=== PATIENT | female | born 1955 | race African-American/Black ===

== ENCOUNTER 2018-11-25 13:58 | Inpatient (IN) | payer MEDICARE, MEDICAID ==
[~2018-11-25] VITALS: Ht 162.6 cm; Wt 90.7 kg
[~2018-11-25 13:58] MED LIST: ACETAMINOPHEN-1 EAC1 ORAL; ALBUTEROL SULF8.5 GM INH; ALLOPURINOL100 M1 ORAL; ATORVASTATIN CA20 MG ORAL; BUMETANIDE1 MG ORAL; CLOPIDOGREL75 MG ORAL; DYAZIDE1 CAP ORAL; FERROUS SULFAT325 MG ORAL; GLIMEPIRIDE4 MG ORAL; HYDROCHLOROTHIA25 MG ORAL; JANUVIA100 MG ORAL; LAC HYDRIN EXT; LEVAQUIN500 MG ORAL; LISINOPRIL20 MG ORAL; METFORMIN HCL1000 M1 ORAL; METOPROLOL TART50 MG ORAL; NORCO 5-325 TA1 EACH ORAL; RANITIDINE HCL150 MG ORAL; TENORMIN25 MG ORAL
--- NOTE | 2018-11-25 14:07 | Emergency Room Report ---
History of Present Illness General Chief Complaint: Dizziness Source: Patient, EMS Present Illness HPI Patient is a 63-year-old female brought in by EMS after increased generalized weakness and lightheadedness. Patient was noted to have high blood sugar by EMS. She was started on IV fluids. Patient reports having increased generalized weakness over the past few days. She denies any focal weakness. She states that she had been more sleepy lately but had not been vomiting or having any diarrhea. She reports being compliant with her medications but does not recall which medication she currently takes. Patient states her primary care physician is Dr. Del VallePatient denies any fever or chills. She reports having some recent epigastric pain. She states she has had a recent ultrasound which showed fatty liver. Allergies: Coded Allergies: No Known Allergies (Unverified , 03/04/14) Patient History Past Medical History: see triage record Now: No Reviewed Nursing Documentation: PMH: Agreed; PSxH: Agreed Nursing Documentation-PMH Past Medical History: No History, Except For Hx Cardiac Problems: Yes - Triple Bypass surgery in 2002 Hx Hypertension: Yes Hx Pacemaker: No Hx Asthma: No Hx Diabetes: Yes - CKD Hx Cancer: Yes - LEUKEMIA Hx Gastrointestinal Problems: No Hx Dialysis: No - Lt Nephrectomy in 03/2015 Hx Neurological Problems: No Hx Cerebrovascular Accident: No Review of Systems All Other Systems: negative except mentioned in HPI Physical Exam Vital Signs Date Time Temp Pulse Resp B/P (MAP) Pulse Ox O2 Delivery O2 Flow Rate FiO2 11/25/18 13:49 98.2 90 18 168/82 98 Room Air Sp02 EP Interpretation: reviewed, normal General Appearance: normal inspection, well appearing, no apparent distress, alert, GCS 15, obese Head: atraumatic ENT: normal ENT inspection, hearing grossly normal, normal voice Neck: normal inspection, full range of motion, supple, no bony tend Respiratory: normal inspection, lungs clear, normal breath sounds, no respiratory distress, no retraction, no wheezing Cardiovascular #1: regular rate, rhythm, no edema Gastrointestinal: normal inspection, normal bowel sounds, soft, no guarding, no hernia Genitourinary: no CVA tenderness Musculoskeletal: normal inspection, back normal, normal range of motion Neurologic: normal inspection, alert, oriented x3, responsive, order entry clerk III-XII nml as tested, speech normal Psychiatric: normal inspection, judgement/insight normal, mood/affect normal Skin: normal inspection, normal color, no rash Medical Decision Making Diagnostic Impression: Primary Impression: Hyperglycemia Additional Impression: Dehydration ER Course Patient 63-year-old female presented after increased generalized weakness. Differential diagnosis included was not limited to anemia, urinary tract infection, electrolyte abnormality, hypothyroidism, myocardial infarction, myasthenia gravis, dehydration, among others. Because of complexity of patient' s case laboratory testing and imaging studies were ordered. She was noted to have EKG interpreted by me with normal sinus rhythm with a rate of [address] or T wave changes.Patient started on IV fluids. Dr. Irby was contacted for inpatient management due to prior admission Labs Test 11/25/18 14:05 White Blood Count 6.0 K/UL (4.8-10.8) Red Blood Count 3.16 M/UL (4.20-5.40) Hemoglobin 11.3 G/DL (12.0-16.0) Hematocrit 35.1 % (37.0-47.0) Mean Corpuscular Volume 111 FL (80-99) Mean Corpuscular Hemoglobin 35.9 PG (27.0-31.0) Mean Corpuscular Hemoglobin Concent 32.3 G/DL (32.0-36.0) Red Cell Distribution Width 13.4 % (11.6-14.8) Platelet Count 409 K/UL (150-450) Mean Platelet Volume 6.6 FL (6.5-10.1) Neutrophils (%) (Auto) % (45.0-75.0) Lymphocytes (%) (Auto) % (20.0-45.0) Monocytes (%) (Auto) % (1.0-10.0) Eosinophils (%) (Auto) % (0.0-3.0) Basophils (%) (Auto) % (0.0-2.0) Sodium Level 135 MMOL/L (136-145) Potassium Level 4.2 MMOL/L (3.5-5.1) Chloride Level 99 MMOL/L (98-107) Carbon Dioxide Level 25 MMOL/L (21-32) Anion Gap 11 mmol/L (5-15) Blood Urea Nitrogen 37 mg/dL (7-18) Creatinine 1.7 MG/DL (0.55-1.30) Estimat Glomerular Filtration Rate 36.7 mL/min (>60) Glucose Level 459 MG/DL (74-106) Calcium Level 9.0 MG/DL (8.5-10.1) Total Bilirubin 0.4 MG/DL (0.2-1.0) Aspartate Amino Transf (AST/SGOT) 16 U/L (15-37) Alanine Aminotransferase (ALT/SGPT) 34 U/L (12-78) Alkaline Phosphatase 188 U/L (46-116) Troponin I 0.000 ng/mL (0.000-0.056) Pro-B-Type Natriuretic Peptide 27 pg/mL (0-125) Total Protein 7.1 G/DL (6.4-8.2) Albumin 3.4 G/DL (3.4-5.0) Globulin 3.7 g/dL Albumin/Globulin Ratio 0.9 (1.0-2.7) Lipase 410 U/L (73-393) Thyroid Stimulating Hormone (TSH) 0.839 uiU/mL (0.358-3.740) EKG Diagnostic Results Rate: normal - 85 Rhythm: NSR ST Segments: no acute changes Last Vital Signs Date Time Temp Pulse Resp B/P (MAP) Pulse Ox O2 Delivery O2 Flow Rate FiO2 11/25/18 13:49 98.2 90 18 168/82 98 Room Air Status: unchanged Disposition: ADMITTED INPATIENT Condition: Serious Don Walter MD Nov 25, 2018 14:07
[2018-11-25 14:29] LABS: HEMATOCRIT 35.1 % (37.0-47.0); HEMOGLOBIN 11.3 G/DL (12.0-16.0); MEAN CORPUSCULAR VOLUME 111 FL (80-99); PLATELET COUNT 409 K/UL (150-450); RED BLOOD COUNT 3.16 M/UL (4.20-5.40); RED CELL DISTRIBUTION WIDTH 13.4 % (11.6-14.8)
[2018-11-25 14:43] LABS: ANION GAP 11 mmol/L (5-15); BLOOD UREA NITROGEN 37 mg/dL (7-18); CARBON DIOXIDE 25 MMOL/L (21-32); CHLORIDE 99 MMOL/L (98-107); CREATININE 1.7 MG/DL (0.55-1.30); POTASSIUM 4.2 MMOL/L (3.5-5.1); SODIUM 135 MMOL/L (136-145)
[2018-11-25 14:44] VITALS: BP 150/68
--- NOTE | 2018-11-25 14:44 | NUR ---
Note jose roberto in EDM - 11/25/18 at 1620 by [email or web address] ED Nurse Note: Pt brought in by [facility] from home c/o weakness. Pt AA&
--- NOTE | 2018-11-25 14:44 | NUR ---
ED Nurse Note: Pt brought in by [facility] from home c/o weakness. Pt BS on field was critically high and pt states she hasn't been taking her meds because she ran out. pt aA&ox4, gcs=15, skin warm and dry, resp even and unlabored on RA, +n -v/d, ambulates w/ weak but steady gait. Pt NSR on bank guard, VSS, BE=852 at the bedside. ERMD at the bedside and aware. will cont monitor. pt advised to notify staff if needed assist.
[2018-11-25 14:57] LABS: ALANINE AMINOTRANSFERASE 34 U/L (12-78); ALBUMIN 3.4 G/DL (3.4-5.0); ALBUMIN/GLOBULIN RATIO 0.9 (1.0-2.7); ALKALINE PHOSPHATASE 188 U/L (46-116); ASPARTATE AMINO TRANSFERASE 16 U/L (15-37); BILIRUBIN,TOTAL 0.4 MG/DL (0.2-1.0)
--- NOTE | 2018-11-25 15:25 | NUR ---
ED Nurse Note: accucheck 389 recheck, JENNIFERD notified.
--- NOTE | 2018-11-25 15:29 | NUR ---
ED Nurse Note: pt advised to increase fluid intake, verified w/ ERMD.
[2018-11-25 15:44] VITALS: BP 153/75
[2018-11-25 16:00] LABS: APPEARANCE,URINE CLEAR; BILIRUBIN, URINE NEGATIVE (NEGATIVE); COLOR,URINE PALE YELLOW; GLUCOSE, URINE (UA) 4+ (NEGATIVE); KETONES,URINE NEGATIVE (NEGATIVE); LEUKOCYTE ESTERASE ,URINE NEGATIVE (NEGATIVE); NITRITE,URINE NEGATIVE (NEGATIVE); PH,URINE 6.5 (4.5-8.0); PROTEIN,URINE NEGATIVE (NEGATIVE); UROBILINOGEN,URINE NORMAL MG/DL (0.0-1.0)
[2018-11-25 16:44] VITALS: BP 149/79
--- NOTE | 2018-11-25 16:50 | Diagnostic Imaging Report ---
Indication: Abdominal pain Technique: Spiral acquisitions obtained through the abdomen and pelvis. No oral contrast utilized, per emergency room physician request No IV contrast utilized, per referring physician request.. Multiplanar reconstructions were generated. Total dose length product 983.82 mGycm. CTDIvol(s) 19.28 mGy. Dose reduction achieved using automated exposure control Comparison: 11/21/2015 Findings: Lack of enteric contrast limits assessment of the GI tract. One or more distal sigmoid diverticula are noted. The appendix is normal. No evidence of diverticulitis. The distal esophagus, stomach, duodenum are unremarkable. No small bowel distention. No free or loculated intraperitoneal gas or fluid. Lack of IV contrast limits assessment of the solid organs. The liver, gallbladder, bile ducts are all unremarkable. The pancreas again demonstrates a calcification within the head. The spleen is unremarkable. The left adrenal demonstrates a stable 12 mm mass which demonstrates attenuation of 10 Hounsfield units. The right adrenal demonstrates at least 2 subcentimeter nodules which are stable. The right kidney is normal. No gross mass, calculi, hydronephrosis, or hydroureter demonstrated. The left kidney is not visualized. No mass is seen in the left renal fossa. No pelvic mass or adenopathy. Uterus and ovaries are not visualized. Again demonstrated is an aortobifemoral bypass graft, patency of which is indeterminate in the absence of IV contrast. Again noted is a stent within the distal right iliac limb. Previously demonstrated Lewis catheter is been removed. The included lung bases are clear. The bones demonstrate degenerative spondylosis changes. Impression: Limited assessment of the GI tract, due to lack of enteric contrast demonstration No acute abnormality Stable small bilateral adrenal nodules, presumably benign adenomata Colonic diverticulosis. No evidence of diverticulitis. Post surgical changes, as described, including evidence of prior left nephrectomy, hysterectomy, aortobifemoral bypass graft, and stenting of the distal right iliac limb of the bypass graft The CT scanner at [facility] is accredited by the [employer] and the scans are performed using protocols designed to limit radiation exposure to as low as reasonably achievable to attain images of sufficient resolution adequate for diagnostic evaluation.
[2018-11-25] MEDS ORDERED: Morphine Sulfate 2mg/ml Inj(IV/IM USE ONLY) IVP PRN (17:15)
[2018-11-25] MEDS ORDERED: Miralax 17gm pkt ORAL PRN (17:15)
[2018-11-25] MEDS ORDERED: Albuterol/Ipratropium 3ml neb HHN PRN (17:15)
[2018-11-25] MEDS ORDERED: Nitroglycerin Subl 0.4mg tab SL PRN (17:15)
[2018-11-25] MEDS ORDERED: Ketorolac 30mg Inj IV PRN (17:15)
[2018-11-25] MEDS ORDERED: Mylanta II UD 30ml ORAL PRN (17:15)
[2018-11-25] MEDS ORDERED: BENADRYL25 MG ORAL (18:19)
[2018-11-25] MEDS ORDERED: VICTOZA 3-0.6 MG/0.1 SQ (18:19)
[2018-11-25] MEDS ORDERED: HUMALOG KW200 UNIT/1 SQ (18:19)
[2018-11-25] MEDS ORDERED: TRESIBA FL200 UNIT/1 SQ (18:31)
[2018-11-25] MEDS ORDERED: BUPROPION XL300 M1 PO (18:32)
[2018-11-25] MEDS ORDERED: BUPROPION XL150 MG ORAL (18:32)
[2018-11-25] MEDS ORDERED: BUMETANIDE2 MG ORAL (18:36)
[2018-11-25] MEDS ORDERED: CILOSTAZOL100 MG PO (18:36)
[2018-11-25] MEDS ORDERED: LACRI-LUBE1 APPLIC BOTH EYES (18:36)
[2018-11-25] MEDS ORDERED: GAS RELIEF125 M1 PO (18:36)
[2018-11-25] MEDS ORDERED: ATORVASTATIN CA80 MG ORAL (18:36)
[2018-11-25] MEDS ORDERED: ASPIR 8181 MG ORAL (18:37)
[2018-11-25] MEDS ORDERED: METOPROLOL SUCC50 MG ORAL (19:08)
--- NOTE | 2018-11-25 19:26 | NUR ---
ED Nurse Note: Received report from Rebecca VIGIL. Pt in bed awake. Pt to be admitted to tele for weakness and uncontrolled diabetes. Pt stable with no distress noted. Will contiue to monitor until nurse available to receive pt on unit.
--- NOTE | 2018-11-25 19:31 | NUR ---
ED Nurse Note: attempted giving report, Rashad zaldivar unavailable to take report at this time.
--- NOTE | 2018-11-25 19:32 | NUR ---
ED Nurse Note: ERMD notified regarding BS, no new orders received.
--- NOTE | 2018-11-25 19:40 | NUR ---
ED Nurse Note: Report given to RN Marilee and endorsed care, pt vss, nsr on cafeteria monitor, all belongings sent with pt.
[2018-11-25 20:00] VITALS: BP 152/69
--- NOTE | 2018-11-25 20:15 | NUR ---
NURSE NOTES: Received patient from ED, report received from YARITZA Gannon. Patient awake, alert and verbally responsive. No SOB, no acute distress. Denies any pain nor any discomfort at this time. Placed medical scientist, vital signs taken. Verified belongings with ED nurse. No skin breakdown noted. IV site on R FA #20, patent and intact, on NS at 100 ml/hr. Bed at lowest position, call light within reach. Will continue plan of care.
[2018-11-25] MEDS: NovoLOG Insulin Flexpen SUBQ SCH (21:27)
[2018-11-25] MEDS: Heparin 5000 units/ml inj SUBQ SCH (21:27)
[2018-11-26] VITALS: BP 128/71
--- NOTE | 2018-11-26 03:20 | NUR ---
NURSE NOTES: Patient asleep, breathing even and unlabored, no s/sx of pain nor any discomfort at this time. bed at lowest position, call light within reach. Will continue to monitor.
[2018-11-26 04:00] VITALS: BP 150/74
[2018-11-26] MEDS: NovoLOG Insulin Flexpen SUBQ SCH ×7 (06:05→21:07)
--- NOTE | 2018-11-26 07:23 | NUR ---
HAND-OFF: Report given to YARITZA Phillips. Endorsed plan of care.
--- NOTE | 2018-11-26 07:29 | NUR ---
NURSE NOTES: Received patient from [facility] in bed eating breakfast. Patient is alert and oriented x4, able to make needs known. IV is intact and patent, NS running at 100cc/hr. Skin is intact and warm to touch. Bed is in lowest position with bedside rails up x2, brakes engaged for safety. Call light is within reach. Will continue with the plan of care.
[2018-11-26 08:00] VITALS: BP 131/70
--- NOTE | 2018-11-26 08:16 | NUR ---
CASE MANAGEMENT:REVIEW 63 YR OLD FEMALE BIBA FROM HOME CC; DIZZINESS SI: UNCONTROLLED DM. DEHYDRATION 98.2 90 18 168/82 98% ON RA BUN+37 CR+1.7 GLUCOSE+459 LIPASE+410 IS: 1L NS BOLUS SS INSULIN : TO TELEMETRY UNIT INTERQUAL CRITERIA MET
[2018-11-26] MEDS: sitaGLIPtin 50mg tab ORAL SCH (08:34)
[2018-11-26] MEDS: Heparin 5000 units/ml inj SUBQ SCH ×2 (08:35→21:08)
--- NOTE | 2018-11-26 08:45 | Consultation ---
DATE OF CONSULTATION: 11/26/2018 CONSULTING PHYSICIAN: Pilo Chapman M.D. REFERRING PHYSICIAN: Ari Irby M.D. REASON FOR CONSULTATION: Diabetes management. HISTORY OF PRESENT ILLNESS: The patient is a 63-year-old female with history of diabetes, as an outpatient treated with a combination of Victoza, Tresiba and Humalog, presented to the hospital with generalized weakness. Lipase is elevated. Glucose is out of control. Endocrinology was consulted in order to assist in the management of diabetes. PAST MEDICAL HISTORY: 1. Diabetes. 2. Hyperlipidemia. 3. Fatty liver. MEDICATIONS: As an outpatient reviewed and reconciled. FAMILY HISTORY: Noncontributory. SOCIAL HISTORY: No smoking, alcohol, or drug use. REVIEW OF SYSTEMS: As per HPI. LABORATORY VALUES: Sodium 135, potassium 4.2, chloride 99, bicarbonate 22, BUN 37, creatinine 1.7, glucose of 459, and lipase of 410. PHYSICAL EXAMINATION: VITAL SIGNS: Blood pressure 150/74, pulse 82, temperature 97.7, and respiratory rate 18. HEENT: Pupils are equal and reactive to light. Sclerae anicteric. NECK: No JVD. HEART: Regular. LUNGS: Clear. ABDOMEN: Positive bowel sounds. EXTREMITIES: No clubbing, cyanosis, or edema. DIAGNOSES: 1. Diabetes, out of control. 2. Pancreatitis. 3. Acute kidney injury. DISCUSSION: 1. Discontinue Victoza which is the probable contributor to pancreatitis. 2. Start Levemir 24 units daily. 3. Start NovoLog 8 units before each meal. 4. NovoLog sliding scale before meals and at bedtime. 5. Further adjustment according to Dr. Irby. Thank you, Dr. Irby, for the courtesy of this consultation. Pilo Chapman M.D. DR: ALEXIA JOB#: [id number] CC: JUDITH
[2018-11-26] MEDS ORDERED: Allopurinol 100mg Tab ORAL SCH (09:00)
[2018-11-26] MEDS ORDERED: Levemir Flexpen SUBQ SCH ×2 (09:00→21:30)
[2018-11-26 09:12] LABS: BASOPHILS % (AUTO) 0.8 % (0.0-2.0); EOSINOPHILS % (AUTO) 1.7 % (0.0-3.0); HEMATOCRIT 29.9 % (37.0-47.0); HEMOGLOBIN 9.9 G/DL (12.0-16.0); LYMPHOCYTES % (AUTO) 40.4 % (20.0-45.0); MEAN CORPUSCULAR VOLUME 109 FL (80-99); MONOCYTES % (AUTO) 4.8 % (1.0-10.0); NEUTROPHILS % (AUTO) 52.3 % (45.0-75.0); PLATELET COUNT 339 K/UL (150-450); RED BLOOD COUNT 2.75 M/UL (4.20-5.40); RED CELL DISTRIBUTION WIDTH 13.6 % (11.6-14.8); WHITE BLOOD COUNT 6.1 K/UL (4.8-10.8)
[2018-11-26 09:44] LABS: ALANINE AMINOTRANSFERASE 30 U/L (12-78); ALBUMIN 2.9 G/DL (3.4-5.0); ALBUMIN/GLOBULIN RATIO 0.9 (1.0-2.7); ALKALINE PHOSPHATASE 146 U/L (46-116); ANION GAP 11 mmol/L (5-15); ASPARTATE AMINO TRANSFERASE 19 U/L (15-37); BILIRUBIN,TOTAL 0.3 MG/DL (0.2-1.0); BLOOD UREA NITROGEN 26 mg/dL (7-18); CALCIUM 8.2 MG/DL (8.5-10.1); CARBON DIOXIDE 23 MMOL/L (21-32); CHLORIDE 106 MMOL/L (98-107); CHOLESTEROL 118 MG/DL (< 200); CREATININE 1.3 MG/DL (0.55-1.30); HDL CHOLESTEROL 28 MG/DL (40-60); SODIUM 140 MMOL/L (136-145); TRIGLYCERIDES 125 MG/DL (30-150)
[2018-11-26 12:00] VITALS: BP 138/65
--- NOTE | 2018-11-26 12:13 | History and Physical ---
History of Present Illness General Date patient seen: Nov 26, 2018 Reason for Hospitalization: Dizziness Present Illness HPI 63-year-old female with extensive PMHx, including DM, nephrectomy, Leukemia, brought in by EMS with CC of generalized weakness and lightheadedness high blood sugar. She was started on IV fluids. She states that she had been more sleepy lately but had not been vomiting or having any diarrhea. Patient denies any fever or chills. She is admitted for uncontrolled hyperglycemia. Allergies: Coded Allergies: No Known Allergies (Unverified , 03/04/14) Medication History Scheduled Aspirin* (Aspir 81*), 81 MG ORAL DAILY, (Reported) Atorvastatin Calcium* (Lipitor*), 80 MG ORAL BEDTIME, (Reported) Bumetanide* (Bumetanide*), 2 MG ORAL DAILY, (Reported) Bupropion HCl (Bupropion Xl), 300 MG PO DAILY, (Reported) Cilostazol* (Cilostazol*), 100 MG PO TWICE A DAY, (Reported) Insulin Degludec (Tresiba Flextouch U-200), 232 UNIT SQ DAILY, (Reported) Insulin Lispro (Humalog Kwikpen), 12 UNIT SQ DAILY, (Reported) Liraglutide (Victoza 3-Edilberto), 1.8 MG SQ DAILY, (Reported) Metoprolol Succinate* (Metoprolol Succinate*), 50 MG ORAL DAILY, (Reported) Simethicone (Gas Relief), 125 MG PO BID, (Reported) Scheduled PRN Diphenhydramine Hcl* (Benadryl*), 25 MG ORAL DAILY PRN for Itching, (Reported) Miscellaneous Medications Artificial Tears (Refresh Lacri-Lube Ointment), 1 APPLIC BOTH EYES, (Reported) Discontinued Medications Acetaminophen With Codeine (T#3) (Tylenol #3 Tab*), 1 TAB ORAL Q4H PRN for For Pain, (Reported) Discontinued Reason: Pt stopped taking med Albuterol Sulfate* (Albuterol Sulfate Mdi*), 2 PUFF INH Q3H, (Reported) Discontinued Reason: Pt stopped taking med Allopurinol* (Allopurinol*), 200 MG ORAL DAILY Discontinued Reason: Pt stopped taking med Ammonium Lactate (Lac-Hydrin Five), 4 OZ EXT, (Reported) Discontinued Reason: Pt stopped taking med Atenolol (Tenormin), 25 MG ORAL DAILY, (Reported) Discontinued Reason: Pt stopped taking med Atorvastatin Calcium* (Atorvastatin Calcium*), 20 MG ORAL BEDTIME, (Reported) Discontinued Reason: Prescription changed Bumetanide* (Bumetanide*), 1 MG ORAL DAILY, (Reported) Discontinued Reason: Pt stopped taking med Clopidogrel* (Clopidogrel*), 75 MG ORAL DAILY, (Reported) Discontinued Reason: Pt stopped taking med Ferrous Sulfate* (Ferrous Sulfate*), 325 MG ORAL DAILY Discontinued Reason: Pt stopped taking med Glimepiride* (Glimepiride*), 4 MG ORAL BID, (Reported) Discontinued Reason: Pt stopped taking med Hydrocodone Bit/Acetaminophen 5-325* (Clawson 5-325*), 1 TAB ORAL Q6H PRN for For Pain Discontinued Reason: Pt had allergic rxn Levofloxacin* (Levaquin*), 500 MG ORAL DAILY, (Reported) Discontinued Reason: Pt stopped taking med Metoprolol Tartrate* (Metoprolol Tartrate*), 50 MG ORAL EVERY 12 HOURS, ( Reported) Discontinued Reason: Prescription changed Ranitidine Hcl* (Zantac*), 150 MG ORAL TWICE A DAY, (Reported) Discontinued Reason: Pt stopped taking med Sitagliptin (Januvia), 100 MG ORAL BID, (Reported) Discontinued Reason: Pt stopped taking med Patient History Healthcare decision maker Resuscitation status Full Code Advanced Directive on File No Review of Systems All Other Systems: negative except mentioned in HPI Physical Exam General Appearance: WD/WN, no apparent distress Lines, tubes and drains: peripheral HEENT: normocephalic, atraumatic Neck: non-tender, normal alignment Respiratory/Chest: chest wall non-tender, lungs clear Breasts: no masses Cardiovascular/Chest: normal peripheral pulses Abdomen: normal bowel sounds, non tender Genitourinary/Rectal: normal genital exam Extremities: normal range of motion Last 24 Hour Vital Signs Date Time Temp Pulse Resp B/P (MAP) Pulse Ox O2 Delivery O2 Flow Rate FiO2 11/26/18 09:00 Room Air 11/26/18 08:00 97.3 80 18 131/70 (90) 100 11/26/18 08:00 80 11/26/18 04:00 82 11/26/18 04:00 97.7 75 18 150/74 (99) 100 11/26/18 00:00 97.9 83 17 128/71 (90) 99 11/26/18 00:00 86 11/25/18 22:32 Room Air 11/25/18 20:00 97.9 87 18 152/69 (96) 99 11/25/18 20:00 86 11/25/18 19:40 98.2 78 16 140/78 100 Room Air 11/25/18 16:44 98.2 78 16 149/79 100 Room Air 11/25/18 15:44 98.2 83 16 153/75 100 Room Air 11/25/18 14:44 98.2 90 18 150/68 98 Room Air 11/25/18 14:44 90 18 Room Air 11/25/18 13:49 98.2 90 18 168/82 98 Room Air Intake and Output 11/25/18 11/26/18 19:00 07:00 Intake Total 1220 ml Balance 1220 ml Intake Oral 120 ml IV Total 1100 ml # Voids 1 3 Laboratory Tests Test 11/25/18 14:05 11/25/18 15:30 11/26/18 06:40 White Blood Count 6.0 K/UL (4.8-10.8) 6.1 K/UL (4.8-10.8) Red Blood Count 3.16 M/UL (4.20-5.40) L 2.75 M/UL (4.20-5.40) L Hemoglobin 11.3 G/DL (12.0-16.0) L 9.9 G/DL (12.0-16.0) L Hematocrit 35.1 % (37.0-47.0) L 29.9 % (37.0-47.0) L Mean Corpuscular Volume 111 FL (80-99) H 109 FL (80-99) H Mean Corpuscular Hemoglobin 35.9 PG (27.0-31.0) H 36.1 PG (27.0-31.0) H Mean Corpuscular Hemoglobin Concent 32.3 G/DL (32.0-36.0) 33.3 G/DL (32.0-36.0) Red Cell Distribution Width 13.4 % (11.6-14.8) 13.6 % (11.6-14.8) Platelet Count 409 K/UL (150-450) 339 K/UL (150-450) Mean Platelet Volume 6.6 FL (6.5-10.1) 6.7 FL (6.5-10.1) Neutrophils (%) (Auto) % (45.0-75.0) 52.3 % (45.0-75.0) Lymphocytes (%) (Auto) % (20.0-45.0) 40.4 % (20.0-45.0) Monocytes (%) (Auto) % (1.0-10.0) 4.8 % (1.0-10.0) Eosinophils (%) (Auto) % (0.0-3.0) 1.7 % (0.0-3.0) Basophils (%) (Auto) % (0.0-2.0) 0.8 % (0.0-2.0) Differential Total Cells Counted 100 Neutrophils % (Manual) 65 % (45-75) Lymphocytes % (Manual) 27 % (20-45) Monocytes % (Manual) 3 % (1-10) Eosinophils % (Manual) 2 % (0-3) Basophils % (Manual) 3 % (0-2) H Band Neutrophils 0 % (0-8) Platelet Estimate Adequate Platelet Morphology Normal Anisocytosis 1+ Sodium Level 135 MMOL/L (136-145) L 140 MMOL/L (136-145) Potassium Level 4.2 MMOL/L (3.5-5.1) 4.0 MMOL/L (3.5-5.1) Chloride Level 99 MMOL/L (98-107) 106 MMOL/L (98-107) Carbon Dioxide Level 25 MMOL/L (21-32) 23 MMOL/L (21-32) Anion Gap 11 mmol/L (5-15) 11 mmol/L (5-15) Blood Urea Nitrogen 37 mg/dL (7-18) H 26 mg/dL (7-18) H Creatinine 1.7 MG/DL (0.55-1.30) H 1.3 MG/DL (0.55-1.30) Estimat Glomerular Filtration Rate 36.7 mL/min (>60) 50.2 mL/min (>60) Glucose Level 459 MG/DL (74-106) H 225 MG/DL (74-106) #H Calcium Level 9.0 MG/DL (8.5-10.1) 8.2 MG/DL (8.5-10.1) L Total Bilirubin 0.4 MG/DL (0.2-1.0) 0.3 MG/DL (0.2-1.0) Aspartate Amino Transf (AST/SGOT) 16 U/L (15-37) 19 U/L (15-37) Alanine Aminotransferase (ALT/SGPT) 34 U/L (12-78) 30 U/L (12-78) Alkaline Phosphatase 188 U/L (46-116) H 146 U/L (46-116) H Troponin I 0.000 ng/mL (0.000-0.056) Pro-B-Type Natriuretic Peptide 27 pg/mL (0-125) Total Protein 7.1 G/DL (6.4-8.2) 6.3 G/DL (6.4-8.2) L Albumin 3.4 G/DL (3.4-5.0) 2.9 G/DL (3.4-5.0) L Globulin 3.7 g/dL 3.4 g/dL Albumin/Globulin Ratio 0.9 (1.0-2.7) L 0.9 (1.0-2.7) L Lipase 410 U/L (73-393) H Thyroid Stimulating Hormone (TSH) 0.839 uiU/mL (0.358-3.740) 1.573 uiU/mL (0.358-3.740) Urine Color Pale yellow Urine Appearance Clear Urine pH 6.5 (4.5-8.0) Urine Specific [place] 1.005 (1.005-1.035) Urine Protein Negative (NEGATIVE) Urine Glucose (UA) 4+ (NEGATIVE) H Urine Ketones Negative (NEGATIVE) Urine Blood Negative (NEGATIVE) Urine Nitrite Negative (NEGATIVE) Urine Bilirubin Negative (NEGATIVE) Urine Urobilinogen Normal MG/DL (0.0-1.0) Urine Leukocyte Esterase Negative (NEGATIVE) Urine RBC 0-2 /HPF (0 - 2) Urine WBC 2-4 /HPF (0 - 2) Urine Squamous Epithelial Cells Few /LPF (NONE/OCC) Urine Bacteria Few /HPF (NONE) Urine Yeast Few /HPF (NONE) H Hemoglobin A1c 11.5 % (4.3-6.0) H Triglycerides Level 125 MG/DL (30-150) Cholesterol Level 118 MG/DL (< 200) LDL Cholesterol 73 mg/dL (<100) HDL Cholesterol 28 MG/DL (40-60) L Cholesterol/HDL Ratio 4.2 (3.3-4.4) Microbiology Date/Time Source Procedure Growth Status 11/25/18 15:30 Urine,Clean Catch Urine Culture - Preliminary NO GROWTH Resulted Height (Feet): 5 Height (Inches): 4.00 Weight (Pounds): 200 Medications Current Medications Medications (Trade) Dose Ordered Sig/Kathrine Route PRN Reason Start Time Stop Time Status Last Admin Dose Admin Acetaminophen (Tylenol) 650 mg Q4H PRN ORAL fever 11/25/18 17:15 12/25/18 17:14 11/26/18 04:18 Al Hydroxide/Mg Hydroxide (Mylanta II) 30 ml Q6H PRN ORAL dyspepsia 11/25/18 17:15 12/25/18 17:14 Albuterol/ Ipratropium (Albuterol/ Ipratropium) 3 ml Q4H PRN HHN Shortness of Breath 11/25/18 17:15 11/30/18 17:14 Clonidine HCl (Catapres Tab) 0.1 mg Q4H PRN ORAL sbp more than 160 11/25/18 17:15 12/25/18 17:14 Clopidogrel Bisulfate (Plavix) 75 mg DAILY ORAL 11/26/18 09:00 12/26/18 08:59 11/26/18 08:34 Dextrose (Dextrose 50%) 25 ml Q30M PRN IV Hypoglycemia 11/26/18 06:45 12/26/18 06:44 Dextrose (Dextrose 50%) 50 ml Q30M PRN IV Hypoglycemia 11/26/18 06:45 12/26/18 06:44 Heparin Sodium (Porcine) (Heparin 5000 units/ml) 5,000 units EVERY 12 HOURS SUBQ 11/25/18 21:00 12/25/18 20:59 11/26/18 08:35 Insulin Aspart (NovoLOG) BEFORE MEALS AND HS SUBQ 11/25/18 21:00 12/25/18 20:59 11/26/18 06:05 Insulin Aspart (NovoLOG) 8 units NOVOTIAC SUBQ 11/26/18 06:45 12/26/18 06:44 11/26/18 06:53 Insulin Detemir (Levemir) 24 units DAILY SUBQ 11/26/18 09:00 12/26/18 08:59 11/26/18 08:36 Ketorolac Tromethamine (Toradol 30mg) 30 mg Q6H PRN IV moderate pain 4-6 11/25/18 17:15 11/30/18 17:14 Morphine Sulfate (Morphine Sulfate) 2 mg Q4H PRN IVP severe pain 7-10 11/25/18 17:15 12/02/18 17:14 Nitroglycerin (Ntg) 0.4 mg Q5M X 3 DOSES PRN SL Prn Chest Pain 11/25/18 17:15 12/25/18 17:14 Ondansetron HCl (Zofran) 4 mg Q6H PRN IVP Nausea & Vomiting 11/25/18 17:15 12/25/18 17:14 Polyethylene Glycol (Miralax) 17 gm HSPRN PRN ORAL Constipation 11/25/18 17:15 12/25/18 17:14 Sitagliptin Phosphate (Januvia) 50 mg DAILY ORAL 11/26/18 09:00 12/26/18 08:59 11/26/18 08:34 Sodium Chloride 1,000 ml @ 100 mls/hr Q10H IVLG 11/25/18 17:03 12/25/18 17:02 11/26/18 03:08 Temazepam (Restoril) 15 mg HSPRN PRN ORAL Insomnia 11/25/18 17:15 12/02/18 17:14 Assessment/Plan Problem List: (1) Uncontrolled diabetes mellitus ICD Codes: E11.65 - Type 2 diabetes mellitus with hyperglycemia SNOMED: 27608682, 310460518 (2) ATN (acute tubular necrosis) ICD Codes: N17.0 - Acute kidney failure with tubular necrosis SNOMED: 56688324 (3) Hx of CABG ICD Codes: Z95.1 - Presence of aortocoronary bypass graft SNOMED: 622702767, 672254835 (4) CAD (coronary artery disease) ICD Codes: I25.10 - Atherosclerotic heart disease of [place] coronary artery without angina pectoris SNOMED: 98151599 (5) S/p nephrectomy ICD Codes: Z90.5 - Acquired absence of kidney SNOMED: 23153380, 492444888 Assessment/Plan iv fludis sliding scale diabetic diet renal studies echo cardiogram anemia work up echo and cardiac evaluation. Ari Irby MD Nov 26, 2018 12:13
--- NOTE | 2018-11-26 15:57 | Cardiology Report ---
APPROVED REPORT EKG Measurement Heart [id number] Normal sinus rhythm Cannot rule out Anterior infarct, age undetermined Abnormal ECG
[2018-11-26 16:00] VITALS: BP 137/75
--- NOTE | 2018-11-26 19:36 | NUR ---
NURSE NOTES: Report received from YARITZA Phillips. Pt is lying comfortably in semi fowlers with no signs of distress. Pt is A+Ox4, denies pain/ SOB. IV site is patent, intact, and running fluids at prescribed rate. Respirations are even and unlabored on room air. Bed is at lowest position, brakes engaged, siderails x2, bed alarm on, and call light within reach. Pt is in stable condition at this time; will continue to monitor.
--- NOTE | 2018-11-26 19:47 | NUR ---
HAND-OFF: Report given to YARITZA Martinez. Patient is in stable condition.
[2018-11-26 20:00] VITALS: BP 131/62
[2018-11-27] VITALS: BP 144/73
[2018-11-27 04:00] VITALS: BP 155/74
[2018-11-27] MEDS: NovoLOG Insulin Flexpen SUBQ SCH ×7 (05:58→20:59)
--- NOTE | 2018-11-27 06:38 | General Progress Note ---
Assessment/Plan Problem List: (1) Diabetic nephropathy ICD Codes: E11.21 - Type 2 diabetes mellitus with diabetic nephropathy SNOMED: 674498205 (2) Uncontrolled diabetes mellitus ICD Codes: E11.65 - Type 2 diabetes mellitus with hyperglycemia SNOMED: 48747730, [id number] Assessment/Plan increase Levemir to 50 units bid increase Novolog to 16 units ac tid continue NISS ac / hs will resume Victoza once family brings patient's own supply Subjective ROS Limited/Unobtainable: Yes Allergies: Coded Allergies: No Known Allergies (Unverified , 03/04/14) Subjective events noted she is resting glucose values improved but still elevated Item Value Date Time Bedside Blood Glucose 262 mg/dl H 11/27/18 0606 Bedside Blood Glucose 345 mg/dl H 11/26/18 2107 Bedside Blood Glucose 281 mg/dl H 11/26/18 1655 Bedside Blood Glucose 276 mg/dl H 11/26/18 1207 Bedside Blood Glucose 210 mg/dl H 11/26/18 0836 Bedside Blood Glucose 210 mg/dl H 11/26/18 0653 Objective Last 24 Hour Vital Signs Date Time Temp Pulse Resp B/P (MAP) Pulse Ox O2 Delivery O2 Flow Rate FiO2 11/27/18 04:00 77 11/27/18 04:00 97.4 80 18 155/74 (101) 100 11/27/18 00:00 86 11/27/18 00:00 97.6 83 18 144/73 (96) 96 11/26/18 21:00 Room Air 11/26/18 20:00 84 11/26/18 20:00 97.7 85 18 131/62 (85) 98 11/26/18 16:00 88 11/26/18 16:00 97.7 84 18 137/75 (95) 100 11/26/18 12:00 97.7 72 18 138/65 (89) 99 11/26/18 12:00 76 11/26/18 09:00 Room Air 11/26/18 08:00 97.3 80 18 131/70 (90) 100 11/26/18 08:00 80 Intake and Output 11/26/18 11/27/18 19:00 07:00 Intake Total 360 ml Balance 360 ml Intake Oral 360 ml # Voids 3 2 # Bowel Movements 1 Laboratory Tests 11/26/18 06:40: White Blood Count 6.1, Red Blood Count 2.75L, Hemoglobin 9.9L, Hematocrit 29.9L , Mean Corpuscular Volume 109H, Mean Corpuscular Hemoglobin 36.1H, Mean Corpuscular Hemoglobin Concent 33.3, Red Cell Distribution Width 13.6, Platelet Count 339, Mean Platelet Volume 6.7, Neutrophils (%) (Auto) 52.3, Lymphocytes (% ) (Auto) 40.4, Monocytes (%) (Auto) 4.8, Eosinophils (%) (Auto) 1.7, Basophils ( %) (Auto) 0.8, Sodium Level 140, Potassium Level 4.0, Chloride Level 106, Carbon Dioxide Level 23, Anion Gap 11, Blood Urea Nitrogen 26H, Creatinine 1.3, Estimat Glomerular Filtration Rate 50.2, Glucose Level 225#H, Hemoglobin A1c 11.5H, Calcium Level 8.2L, Total Bilirubin 0.3, Aspartate Amino Transf (AST/SGOT ) 19, Alanine Aminotransferase (ALT/SGPT) 30, Alkaline Phosphatase 146H, Total Protein 6.3L, Albumin 2.9L, Globulin 3.4, Albumin/Globulin Ratio 0.9L, Triglycerides Level 125, Cholesterol Level 118, LDL Cholesterol 73, HDL Cholesterol 28L, Cholesterol/HDL Ratio 4.2, Thyroid Stimulating Hormone (TSH) 1.573 11/26/18 16:20: Stool Occult Blood [Pending] Height (Feet): 5 Height (Inches): 4.00 Weight (Pounds): 200 General Appearance: no apparent distress Neck: normal alignment Cardiovascular: normal rate Respiratory/Chest: normal breath sounds Objective Current Medications Medications (Trade) Dose Ordered Sig/Kathrine Route PRN Reason Start Time Stop Time Status Last Admin Dose Admin Acetaminophen (Tylenol) 650 mg Q4H PRN ORAL fever 11/25/18 17:15 12/25/18 17:14 11/27/18 01:58 Al Hydroxide/Mg Hydroxide (Mylanta II) 30 ml Q6H PRN ORAL dyspepsia 11/25/18 17:15 12/25/18 17:14 Albuterol/ Ipratropium (Albuterol/ Ipratropium) 3 ml Q4H PRN HHN Shortness of Breath 11/25/18 17:15 11/30/18 17:14 Clonidine HCl (Catapres Tab) 0.1 mg Q4H PRN ORAL sbp more than 160 11/25/18 17:15 12/25/18 17:14 Clopidogrel Bisulfate (Plavix) 75 mg DAILY ORAL 11/26/18 09:00 12/26/18 08:59 11/26/18 08:34 Dextrose (Dextrose 50%) 25 ml Q30M PRN IV Hypoglycemia 11/26/18 21:30 12/26/18 21:29 Dextrose (Dextrose 50%) 50 ml Q30M PRN IV Hypoglycemia 11/26/18 21:30 12/26/18 21:29 Heparin Sodium (Porcine) (Heparin 5000 units/ml) 5,000 units EVERY 12 HOURS SUBQ 11/25/18 21:00 12/25/18 20:59 11/26/18 21:08 Insulin Aspart (NovoLOG) BEFORE MEALS AND HS SUBQ 11/25/18 21:00 12/25/18 20:59 11/27/18 06:00 Insulin Aspart (NovoLOG) 8 units NOVOTIAC SUBQ 11/26/18 06:45 12/26/18 06:44 11/27/18 05:58 Insulin Detemir (Levemir) 24 units DAILY SUBQ 11/26/18 09:00 12/26/18 08:59 11/26/18 08:36 Insulin Detemir (Levemir) 40 units BEDTIME SUBQ 11/27/18 21:00 12/26/18 21:29 Ketorolac Tromethamine (Toradol 30mg) 30 mg Q6H PRN IV moderate pain 4-6 11/25/18 17:15 11/30/18 17:14 Morphine Sulfate (Morphine Sulfate) 2 mg Q4H PRN IVP severe pain 7-10 11/25/18 17:15 12/02/18 17:14 Nitroglycerin (Ntg) 0.4 mg Q5M X 3 DOSES PRN SL Prn Chest Pain 11/25/18 17:15 12/25/18 17:14 Ondansetron HCl (Zofran) 4 mg Q6H PRN IVP Nausea & Vomiting 11/25/18 17:15 12/25/18 17:14 Polyethylene Glycol (Miralax) 17 gm HSPRN PRN ORAL Constipation 11/25/18 17:15 12/25/18 17:14 Sitagliptin Phosphate (Januvia) 50 mg DAILY ORAL 11/26/18 09:00 12/26/18 08:59 11/26/18 08:34 Sodium Chloride 1,000 ml @ 100 mls/hr Q10H IVLG 11/25/18 17:03 12/25/18 17:02 11/27/18 01:50 Temazepam (Restoril) 15 mg HSPRN PRN ORAL Insomnia 11/25/18 17:15 12/02/18 17:14 Pilo Chapman MD Nov 27, 2018 06:38
[2018-11-27 07:11] LABS: HEMATOCRIT 29.8 % (37.0-47.0); HEMOGLOBIN 9.7 G/DL (12.0-16.0); MEAN CORPUSCULAR VOLUME 111 FL (80-99); PLATELET COUNT 335 K/UL (150-450); RED CELL DISTRIBUTION WIDTH 13.8 % (11.6-14.8); WHITE BLOOD COUNT 5.1 K/UL (4.8-10.8)
--- NOTE | 2018-11-27 07:16 | NUR ---
HAND-OFF: Report given to YARITZA Greene. Pt is in stable condition; plan of care endorsed.
--- NOTE | 2018-11-27 07:30 | NUR ---
NURSE NOTES: Received report from YARITZA Colvin. Patient in bed resting, no active s/s cardiac, respiratory distress noticed at this time, denies pain at this time, Patient AO x4, SR with HR 80. Patient on room air, IV site on right AC 20G, IV running at prescribed rate, IV site asymptomatic, patent, intact. Bed in lowest position, side rails upx2, call light within reach. Will continue to monitor.
[2018-11-27 07:49] LABS: LACTATE DEHYDROGENASE 212 U/L (81-234)
[2018-11-27 08:00] VITALS: BP 131/67
[2018-11-27 08:21] LABS: % IRON SATURATION 13 % (15-50); IRON 38 ug/dL (50-175); TOTAL IRON BINDING CAPACITY 295 ug/dL (250-450)
[2018-11-27] MEDS: sitaGLIPtin 50mg tab ORAL SCH (08:47)
[2018-11-27] MEDS: Heparin 5000 units/ml inj SUBQ SCH (08:49)
[2018-11-27] MEDS: Levemir Flexpen SUBQ SCH (10:17)
[2018-11-27 12:00] VITALS: BP 141/90
--- NOTE | 2018-11-27 12:32 | Pulmonology Progress Note ---
Assessment/Plan Problems: (1) Uncontrolled diabetes mellitus (2) ATN (acute tubular necrosis) (3) Hx of CABG (4) CAD (coronary artery disease) (5) S/p nephrectomy Assessment/Plan BS better ivf fluids check electrolytes OB positive, ask GI to see increase Levemir to 50 units bid increase Novolog to 16 units ac tid Subjective ROS Limited/Unobtainable: No Interval Events: doing better Allergies: Coded Allergies: No Known Allergies (Unverified , 03/04/14) Objective Last 24 Hour Vital Signs Date Time Temp Pulse Resp B/P (MAP) Pulse Ox O2 Delivery O2 Flow Rate FiO2 11/27/18 09:35 84 18 Room Air 21 11/27/18 09:00 Room Air 11/27/18 08:00 84 11/27/18 08:00 97.8 79 18 131/67 (88) 99 11/27/18 04:00 77 11/27/18 04:00 97.4 80 18 155/74 (101) 100 11/27/18 00:00 86 11/27/18 00:00 97.6 83 18 144/73 (96) 96 11/26/18 21:00 Room Air 11/26/18 20:00 84 11/26/18 20:00 97.7 85 18 131/62 (85) 98 11/26/18 16:00 88 11/26/18 16:00 97.7 84 18 137/75 (95) 100 Intake and Output 11/26/18 11/27/18 19:00 07:00 Intake Total 360 ml 1200 ml Balance 360 ml 1200 ml Intake Oral 360 ml IV Total 1200 ml # Voids 3 2 # Bowel Movements 1 General Appearance: WD/WN HEENT: normocephalic, atraumatic Respiratory/Chest: chest wall non-tender, lungs clear Cardiovascular: regular rhythm Abdomen: normal bowel sounds, soft, non tender, no organomegaly Genitourinary: normal external genitalia Extremities: no clubbing Microbiology Date/Time Source Procedure Growth Status 11/25/18 15:30 Urine,Clean Catch Urine Culture - Preliminary Mixed Gram Positive Organism Resulted Laboratory Tests 11/26/18 16:20: Stool Occult Blood Positive 11/27/18 05:15: White Blood Count 5.1, Red Blood Count 2.70L, Hemoglobin 9.7L, Hematocrit 29.8L , Mean Corpuscular Volume 111H, Mean Corpuscular Hemoglobin 36.0H, Mean Corpuscular Hemoglobin Concent 32.5, Red Cell Distribution Width 13.8, Platelet Count 335, Mean Platelet Volume 6.4L, Neutrophils (%) (Auto) , Lymphocytes (%) ( Auto) , Monocytes (%) (Auto) , Eosinophils (%) (Auto) , Basophils (%) (Auto) , Differential Total Cells Counted 100, Neutrophils % (Manual) 59, Lymphocytes % ( Manual) 36, Monocytes % (Manual) 4, Eosinophils % (Manual) 1, Basophils % ( Manual) 0, Band Neutrophils 0, Platelet Estimate Adequate, Platelet Morphology Normal, Polychromasia 1+, Macrocytosis 1+, Erythrocyte Sedimentation Rate 47H, Reticulocyte Count 2.9H, Prothrombin Time 10.4, Prothromb Time International Ratio 1.0, Activated Partial Thromboplast Time 23, Iron Level 38L, Total Iron Binding Capacity 295, Percent Iron Saturation 13L, Unsaturated Iron Binding 257 , Lactate Dehydrogenase 212, Carcinoembryonic Antigen [Pending], Vitamin B12 Level 846, Folate 10.1 Current Medications Medications (Trade) Dose Ordered Sig/Kathrine Route PRN Reason Start Time Stop Time Status Last Admin Dose Admin Acetaminophen (Tylenol) 650 mg Q4H PRN ORAL fever 11/25/18 17:15 12/25/18 17:14 11/27/18 01:58 Al Hydroxide/Mg Hydroxide (Mylanta II) 30 ml Q6H PRN ORAL dyspepsia 11/25/18 17:15 12/25/18 17:14 Albuterol/ Ipratropium (Albuterol/ Ipratropium) 3 ml Q4H PRN HHN Shortness of Breath 11/25/18 17:15 11/30/18 17:14 Clonidine HCl (Catapres Tab) 0.1 mg Q4H PRN ORAL sbp more than 160 11/25/18 17:15 12/25/18 17:14 Clopidogrel Bisulfate (Plavix) 75 mg DAILY ORAL 11/26/18 09:00 12/26/18 08:59 11/27/18 08:47 Dextrose (Dextrose 50%) 25 ml Q30M PRN IV Hypoglycemia 11/26/18 21:30 12/26/18 21:29 Dextrose (Dextrose 50%) 50 ml Q30M PRN IV Hypoglycemia 11/26/18 21:30 12/26/18 21:29 Heparin Sodium (Porcine) (Heparin 5000 units/ml) 5,000 units EVERY 12 HOURS SUBQ 11/25/18 21:00 12/25/18 20:59 11/27/18 08:49 Insulin Aspart (NovoLOG) BEFORE MEALS AND HS SUBQ 11/25/18 21:00 12/25/18 20:59 11/27/18 06:00 Insulin Aspart (NovoLOG) 16 units NOVOTIAC SUBQ 11/27/18 11:50 12/26/18 06:44 Insulin Detemir (Levemir) 50 units BEDTIME SUBQ 11/27/18 21:00 12/26/18 21:29 Insulin Detemir (Levemir) 50 units DAILY SUBQ 11/27/18 09:00 12/26/18 08:59 11/27/18 10:17 Ketorolac Tromethamine (Toradol 30mg) 30 mg Q6H PRN IV moderate pain 4-6 11/25/18 17:15 11/30/18 17:14 11/27/18 06:37 Morphine Sulfate (Morphine Sulfate) 2 mg Q4H PRN IVP severe pain 7-10 11/25/18 17:15 12/02/18 17:14 Nitroglycerin (Ntg) 0.4 mg Q5M X 3 DOSES PRN SL Prn Chest Pain 11/25/18 17:15 12/25/18 17:14 Ondansetron HCl (Zofran) 4 mg Q6H PRN IVP Nausea & Vomiting 11/25/18 17:15 12/25/18 17:14 Polyethylene Glycol (Miralax) 17 gm HSPRN PRN ORAL Constipation 11/25/18 17:15 12/25/18 17:14 Sitagliptin Phosphate (Januvia) 50 mg DAILY ORAL 11/26/18 09:00 12/26/18 08:59 11/27/18 08:47 Sodium Chloride 1,000 ml @ 100 mls/hr Q10H IVLG 11/25/18 17:03 12/25/18 17:02 11/27/18 01:50 Temazepam (Restoril) 15 mg HSPRN PRN ORAL Insomnia 11/25/18 17:15 12/02/18 17:14 Ari Irby MD Nov 27, 2018 12:32
--- NOTE | 2018-11-27 14:16 | GI Initial Consult Note ---
History of Present Illness General Date patient seen: Nov 27, 2018 Time patient seen: 14:11 Reason for Hospitalization: Dizziness Referring physician: JAYA AARON Reason for Consultation: OB STOOL POSITIVE Present Illness HPI Patient is a 63-year-old female brought in by EMS after increased generalized weakness and lightheadedness. Patient was noted to have high blood sugar by EMS. She was started on IV fluids. Patient reports having increased generalized weakness over the past few days. She denies any focal weakness. She states that she had been more sleepy lately but had not been vomiting or having any diarrhea. She reports being compliant with her medications but does not recall which medication she currently takes. Patient states her primary care physician is Dr. Del VallePatient denies any fever or chills. She reports having some recent epigastric pain. She states she has had a recent ultrasound which showed fatty liver. GI consulted for positive occult blood stool. Patient seen, awake alert and oriented x4 in no apparent distress. Denies any nausea or vomiting or diarrhea at this time. Has complaint of constipation. Patient states she has epigastric pain in addition with upper abdominal pain for approximately 2 weeks now. Patient states that she has a history of fatty liver. States that her last endoscopy and colonoscopy was approximately 2 years ago with colonic polyps noted. Labs reviewed; patient presents with hemoglobin of 9.7, iron deficiency with a 13% saturation, elevated alkaline phosphatase of 146. Abdominal pelvis CT reviewed to be negative. Home Meds Reported Medications Metoprolol Succinate* (METOPROLOL SUCCINATE*) 50 Mg Tab.er.24h, 50 MG ORAL DAILY , TAB 11/25/18 Aspirin* (ASPIR 81*) 81 Mg Tablet.dr, 81 MG ORAL DAILY, TAB 11/25/18 Simethicone (GAS RELIEF) 125 Mg Tab.chew, 125 MG PO BID, TAB 11/25/18 Cilostazol* (CILOSTAZOL*) 100 Mg Tablet, 100 MG PO TWICE A DAY, TAB 11/25/18 Artificial Tears (Refresh Lacri-Lube Ointment) 3.5 Gm Oint...g., 1 APPLIC BOTH EYES, APPLIC 11/25/18 Bumetanide* (BUMETANIDE*) 2 Mg Tablet, 2 MG ORAL DAILY, TAB 11/25/18 Atorvastatin Calcium* (LIPITOR*) 80 Mg Tablet, 80 MG ORAL BEDTIME, TAB 11/25/18 Bupropion HCl (Bupropion Xl) 300 Mg Tab.er.24h, 300 MG PO DAILY, TAB 11/25/18 Insulin Degludec (Tresiba Flextouch U-200) 200 Unit/1 Ml Insuln.pen, 232 UNIT SQ DAILY, EA 11/25/18 Insulin Lispro (Humalog Kwikpen) 200 Unit/1 Ml Insuln.pen, 12 UNIT SQ DAILY, EA Per sliding scale 11/25/18 Liraglutide (VICTOZA 3-JAGDISH) 0.6 Mg/0.1 Ml Pen.injctr, 1.8 MG SQ DAILY, EA 0 Refills 11/25/18 Diphenhydramine Hcl* (BENADRYL*) 25 Mg Capsule, 25 MG ORAL DAILY PRN for Itching , CAP 11/25/18 Discontinued Reported Medications Levofloxacin* (LEVAQUIN*) 500 Mg Tablet, 500 MG ORAL DAILY, #1 TAB 11/25/15 Albuterol Sulfate* (ALBUTEROL SULFATE MDI*) 8.5 Gm Hfa.aer.ad, 2 PUFF INH Q3H, # 1 INH 0 Refills 11/21/15 Ranitidine Hcl* (ZANTAC*) 150 Mg Tablet, 150 MG ORAL TWICE A DAY, TAB 11/21/15 Atenolol (Tenormin) 25 Mg Tab, 25 MG ORAL DAILY, TAB 11/21/15 Clopidogrel* (CLOPIDOGREL*) 75 Mg Tablet, 75 MG ORAL DAILY, TAB 11/21/15 Ammonium Lactate (Lac-Hydrin Five) 4 Oz Lotn, 4 OZ EXT 11/21/15 Bumetanide* (BUMETANIDE*) 1 Mg Tablet, 1 MG ORAL DAILY, TAB 11/21/15 Acetaminophen With Codeine (T#3) (TYLENOL #3 TAB*) 1 Each Tablet, 1 TAB ORAL Q4H PRN for For Pain, TAB 11/21/15 Metoprolol Tartrate* (METOPROLOL TARTRATE*) 50 Mg Tablet, 50 MG ORAL EVERY 12 HOURS, TAB 0 Refills 11/21/15 Sitagliptin (Januvia) 100 Mg Tab, 100 MG ORAL BID, TAB 03/04/14 Atorvastatin Calcium* (ATORVASTATIN CALCIUM*) 20 Mg Tablet, 20 MG ORAL BEDTIME, TAB 03/04/14 Glimepiride* (GLIMEPIRIDE*) 4 Mg Tablet, 4 MG ORAL BID, TAB 03/04/14 Discontinued Scripts Ferrous Sulfate* (FERROUS SULFATE*) 325 Mg Tablet, 325 MG ORAL DAILY, #30 TAB 0 Refills Prov:[employer] [facility] 11/24/15 Allopurinol* (ALLOPURINOL*) 100 Mg Tablet, 200 MG ORAL DAILY, #30 TAB Prov:[employer] 11/24/15 Hydrocodone Bit/Acetaminophen 5-325* (NORCO 5-325*) 1 Each Tablet, 1 TAB ORAL Q6H PRN for For Pain, #10 TAB Prov:ENMANUEL ARITA.Don 03/04/14 Med list reviewed/reconciled: Yes Allergies: Coded Allergies: No Known Allergies (Unverified , 03/04/14) Patient History History Provided By: Patient, Medical Record PMH Narrative Past Medical History: see triage record Now: No Reviewed Nursing Documentation: PMH: Agreed; PSxH: Agreed Nursing Documentation-PMH Past Medical History: No History, Except For Hx Cardiac Problems: Yes - Triple Bypass surgery in 2002 Hx Hypertension: Yes Hx Pacemaker: No Hx Asthma: No Hx Diabetes: Yes - CKD Hx Cancer: Yes - LEUKEMIA Hx Gastrointestinal Problems: No Hx Dialysis: No - Lt Nephrectomy in 03/2015 Hx Neurological Problems: No Hx Cerebrovascular Accident: No Social History: Denies: smoking, alcohol use, drug use, other Review of Systems All Other Systems: limited Physical Exam Vital Signs Date Time Temp Pulse Resp B/P (MAP) Pulse Ox O2 Delivery O2 Flow Rate FiO2 11/25/18 13:49 98.2 90 18 168/82 98 Room Air 11/27/18 09:35 21 Sp02 EP Interpretation: reviewed, normal Labs Laboratory Tests Test 11/26/18 16:20 11/27/18 05:15 Stool Occult Blood Positive (NEGATIVE) White Blood Count 5.1 K/UL (4.8-10.8) Red Blood Count 2.70 M/UL (4.20-5.40) L Hemoglobin 9.7 G/DL (12.0-16.0) L Hematocrit 29.8 % (37.0-47.0) L Mean Corpuscular Volume 111 FL (80-99) H Mean Corpuscular Hemoglobin 36.0 PG (27.0-31.0) H Mean Corpuscular Hemoglobin Concent 32.5 G/DL (32.0-36.0) Red Cell Distribution Width 13.8 % (11.6-14.8) Platelet Count 335 K/UL (150-450) Mean Platelet Volume 6.4 FL (6.5-10.1) L Neutrophils (%) (Auto) % (45.0-75.0) Lymphocytes (%) (Auto) % (20.0-45.0) Monocytes (%) (Auto) % (1.0-10.0) Eosinophils (%) (Auto) % (0.0-3.0) Basophils (%) (Auto) % (0.0-2.0) Differential Total Cells Counted 100 Neutrophils % (Manual) 59 % (45-75) Lymphocytes % (Manual) 36 % (20-45) Monocytes % (Manual) 4 % (1-10) Eosinophils % (Manual) 1 % (0-3) Basophils % (Manual) 0 % (0-2) Band Neutrophils 0 % (0-8) Platelet Estimate Adequate Platelet Morphology Normal Polychromasia 1+ Macrocytosis 1+ Erythrocyte Sedimentation Rate 47 MM/HR (0-30) H Reticulocyte Count 2.9 % (0.0-2.0) H Prothrombin Time 10.4 SEC (9.30-11.50) Prothromb Time International Ratio 1.0 (0.9-1.1) Activated Partial Thromboplast Time 23 SEC (23-33) Iron Level 38 ug/dL (50-175) L Total Iron Binding Capacity 295 ug/dL (250-450) Percent Iron Saturation 13 % (15-50) L Unsaturated Iron Binding 257 ug/dL (112-346) Lactate Dehydrogenase 212 U/L (81-234) Carcinoembryonic Antigen Pending Vitamin B12 Level 846 PG/ML (193-986) Folate 10.1 NG/ML (8.6-58.9) General Appearance: well appearing, no apparent distress, alert, obese Head: normocephalic EENT: PERRL/EOMI, normal ENT inspection Neck: supple Respiratory: normal breath sounds, no respiratory distress Cardiovascular: normal rate Gastrointestinal: normal inspection, non tender, soft, normal bowel sounds, non -distended Rectal: deferred Genitourinary: no CVA tenderness Musculoskeletal: normal inspection, back normal Neurologic: normal inspection, alert, oriented x3, responsive Psychiatric: normal inspection, judgement/insight normal, memory normal Skin: normal inspection, normal color, no rash, warm/dry, palpation normal, well hydrated Lymphatic: normal inspection, no adenopathy Current Medications Current Medications Medications (Trade) Dose Ordered Sig/Kathrine Route PRN Reason Start Time Stop Time Status Last Admin Dose Admin Acetaminophen (Tylenol) 650 mg Q4H PRN ORAL fever 11/25/18 17:15 12/25/18 17:14 11/27/18 01:58 Al Hydroxide/Mg Hydroxide (Mylanta II) 30 ml Q6H PRN ORAL dyspepsia 11/25/18 17:15 12/25/18 17:14 Albuterol/ Ipratropium (Albuterol/ Ipratropium) 3 ml Q4H PRN HHN Shortness of Breath 11/25/18 17:15 11/30/18 17:14 Clonidine HCl (Catapres Tab) 0.1 mg Q4H PRN ORAL sbp more than 160 11/25/18 17:15 12/25/18 17:14 Dextrose (Dextrose 50%) 25 ml Q30M PRN IV Hypoglycemia 11/26/18 21:30 12/26/18 21:29 Dextrose (Dextrose 50%) 50 ml Q30M PRN IV Hypoglycemia 11/26/18 21:30 12/26/18 21:29 Insulin Aspart (NovoLOG) BEFORE MEALS AND HS SUBQ 11/25/18 21:00 12/25/18 20:59 11/27/18 12:34 Insulin Aspart (NovoLOG) 16 units NOVOTIAC SUBQ 11/27/18 11:50 12/26/18 06:44 11/27/18 12:34 Insulin Detemir (Levemir) 50 units BEDTIME SUBQ 11/27/18 21:00 12/26/18 21:29 Insulin Detemir (Levemir) 50 units DAILY SUBQ 11/27/18 09:00 12/26/18 08:59 11/27/18 10:17 Morphine Sulfate (Morphine Sulfate) 2 mg Q4H PRN IVP severe pain 7-10 11/25/18 17:15 12/02/18 17:14 Nitroglycerin (Ntg) 0.4 mg Q5M X 3 DOSES PRN SL Prn Chest Pain 2/19/19 17:15 12/25/18 17:14 Ondansetron HCl (Zofran) 4 mg Q6H PRN IVP Nausea & Vomiting 11/25/18 17:15 12/25/18 17:14 Polyethylene Glycol (Miralax) 17 gm HSPRN PRN ORAL Constipation 11/25/18 17:15 12/25/18 17:14 Sitagliptin Phosphate (Januvia) 50 mg DAILY ORAL 11/26/18 09:00 12/26/18 08:59 11/27/18 08:47 Sodium Chloride 1,000 ml @ 100 mls/hr Q10H IVLG 11/25/18 17:03 12/25/18 17:02 11/27/18 01:50 Temazepam (Restoril) 15 mg HSPRN PRN ORAL Insomnia 11/25/18 17:15 12/02/18 17:14 GI: Plan Problems: (1) Anemia (2) Positive occult stool blood test (3) Epigastric pain (4) GERD (gastroesophageal reflux disease) (5) Iron deficiency (6) Elevated alkaline phosphatase level (7) Diabetic nephropathy Plan Anemia workup reviewed, iron deficiency Abdominal ultrasound noted with fatty liver Negative CT scan Positive occult blood stool patient states History of hemorrhoids EGD scheduled for tomorrow to evaluate epigastric pain and rule out upper GI bleed -ADA diet now, n.p.o. at midnight. -Hold all blood thinners tonight PRN transfusions PPI venofer We will follow with additional recommendations post procedure Discussed with Dr. Giles. Thank you for this patient referral, we will follow. The patient was seen and examined at bedside and all new and available data was reviewed in the patients chart. I agree with the above findings, impression and plan. (Patient seen earlier today. Signature stamp does not reflect patient encounter time.). - MD Mary Meade,[facility] Nov 27, 2018 14:16
[2018-11-27 16:00] VITALS: BP 149/96
--- NOTE | 2018-11-27 19:15 | NUR ---
NURSE NOTES: Received report from Niya Morrison RN. Pt is resting in the bed w/o distress in RA. Bed is in lowest position, side rails up x2, breaks are engaged. IV is running as ordered, asymptomatic. Will follow plans of care.
[2018-11-27 20:00] VITALS: BP 150/77
--- NOTE | 2018-11-27 20:09 | NUR ---
HAND-OFF: Report given to YARITZA Saeed.
[2018-11-27] MEDS ORDERED: Levemir Flexpen SUBQ SCH ×2 (21:00)
[2018-11-28] VITALS (9 sets, daily range): BP systolic 131–168; BP diastolic 64–105
[2018-11-28] MEDS: NovoLOG Insulin Flexpen SUBQ SCH ×3 (06:30→11:52)
--- NOTE | 2018-11-28 07:10 | NUR ---
HAND-OFF: Report given to YARITZA Huber.
--- NOTE | 2018-11-28 07:10 | NUR ---
NURSE NOTES: Received bedside report from Darlin VIGIL. Pt is asleep in bed, awakens to name/voice, oriented x4. Denies pain or any other discomfort at this time. Pt is on room air with no respiratory distress. IV access on right hand #24G, infusing NS at 100mL/hour. Pt has been on NPO since midnight last night in preparation for EGD scheduled this morning. Skin is intact. Per nurse and pt report, pt is ambulatory with steady gait. Call light is placed within easy reach, bed in lowest position, two side rails up, brakes engaged. Will continue to monitor pt and follow plan of care per MD orders and protocol.
[2018-11-28 07:43] LABS: BASOPHILS % (AUTO) 0.7 % (0.0-2.0); EOSINOPHILS % (AUTO) 1.8 % (0.0-3.0); HEMATOCRIT 31.7 % (37.0-47.0); HEMOGLOBIN 10.2 G/DL (12.0-16.0); LYMPHOCYTES % (AUTO) 35.4 % (20.0-45.0); MEAN CORPUSCULAR VOLUME 110 FL (80-99); MONOCYTES % (AUTO) 8.8 % (1.0-10.0); NEUTROPHILS % (AUTO) 53.3 % (45.0-75.0); PLATELET COUNT 358 K/UL (150-450); RED BLOOD COUNT 2.88 M/UL (4.20-5.40); RED CELL DISTRIBUTION WIDTH 13.7 % (11.6-14.8); WHITE BLOOD COUNT 4.5 K/UL (4.8-10.8)
[2018-11-28 08:09] LABS: INR 0.9 (0.9-1.1)
[2018-11-28 08:26] LABS: ANION GAP 10 mmol/L (5-15); BLOOD UREA NITROGEN 22 mg/dL (7-18); CALCIUM 9.1 MG/DL (8.5-10.1); CARBON DIOXIDE 22 MMOL/L (21-32); CHLORIDE 107 MMOL/L (98-107); CREATININE 1.4 MG/DL (0.55-1.30); POTASSIUM 4.3 MMOL/L (3.5-5.1); SODIUM 139 MMOL/L (136-145)
--- NOTE | 2018-11-28 08:47 | General Progress Note ---
Assessment/Plan Problem List: (1) Diabetic nephropathy ICD Codes: E11.21 - Type 2 diabetes mellitus with diabetic nephropathy SNOMED: 323919978 (2) Uncontrolled diabetes mellitus ICD Codes: E11.65 - Type 2 diabetes mellitus with hyperglycemia SNOMED: 31077107, 492282518 (3) Epigastric pain ICD Codes: R10.13 - Epigastric pain SNOMED: 11188866 Assessment/Plan continue Levemir 50 units bid - discussed with RN to administer morning dose of Levemir when the patient is back from EGD increase Novolog to 20 units ac tid continue NISS ac / hs do not resume Victoza as OP due to elevated lipase Subjective Allergies: Coded Allergies: No Known Allergies (Unverified , 03/04/14) All Systems: reviewed and negative except above Subjective events noted glucose values are improving she is NPO for EGD today Item Value Date Time Bedside Blood Glucose 238 mg/dl H 11/28/18 0703 Bedside Blood Glucose 238 mg/dl H 11/28/18 0630 Bedside Blood Glucose 251 mg/dl H 11/27/18 2059 Bedside Blood Glucose 281 mg/dl H 11/27/18 1741 Bedside Blood Glucose 312 mg/dl H 11/27/18 1234 Bedside Blood Glucose 280 mg/dl H 11/27/18 1017 Bedside Blood Glucose 262 mg/dl H 11/27/18 0606 Objective Last 24 Hour Vital Signs Date Time Temp Pulse Resp B/P (MAP) Pulse Ox O2 Delivery O2 Flow Rate FiO2 11/28/18 04:00 97.5 79 18 144/64 (90) 98 11/28/18 03:47 72 11/28/18 00:00 98.0 79 18 138/105 (116) 98 11/27/18 23:51 81 11/27/18 21:00 Room Air 11/27/18 20:55 77 18 Room Air 21 11/27/18 20:00 97.5 84 20 150/77 (101) 99 11/27/18 19:06 82 11/27/18 16:00 78 11/27/18 16:00 97.6 78 20 149/96 (113) 100 11/27/18 12:00 98.3 80 18 141/90 (107) 99 11/27/18 12:00 80 11/27/18 09:35 84 18 Room Air 21 11/27/18 09:00 Room Air Intake and Output 11/27/18 11/28/18 18:59 06:59 Intake Total 360 ml 750 ml Balance 360 ml 750 ml Intake Oral 360 ml IV Total 750 ml # Voids 3 2 Laboratory Tests 11/28/18 06:07: White Blood Count 4.5L, Red Blood Count 2.88L, Hemoglobin 10.2L, Hematocrit 31.7L, Mean Corpuscular Volume 110H, Mean Corpuscular Hemoglobin 35.4H, Mean Corpuscular Hemoglobin Concent 32.1, Red Cell Distribution Width 13.7, Platelet Count 358, Mean Platelet Volume 6.2L, Neutrophils (%) (Auto) 53.3, Lymphocytes ( %) (Auto) 35.4, Monocytes (%) (Auto) 8.8, Eosinophils (%) (Auto) 1.8, Basophils (%) (Auto) 0.7, Prothrombin Time 10.0, Prothromb Time International Ratio 0.9, Activated Partial Thromboplast Time 23, Sodium Level 139, Potassium Level 4.3, Chloride Level 107, Carbon Dioxide Level 22, Anion Gap 10, Blood Urea Nitrogen 22H, Creatinine 1.4H, Estimat Glomerular Filtration Rate 46.1, Glucose Level 256H, Calcium Level 9.1 Height (Feet): 5 Height (Inches): 4.00 Weight (Pounds): 200 General Appearance: no apparent distress Neck: normal alignment Cardiovascular: regular rhythm Respiratory/Chest: normal breath sounds Abdomen: normal bowel sounds Objective Current Medications Medications (Trade) Dose Ordered Sig/Kathrine Route PRN Reason Start Time Stop Time Status Last Admin Dose Admin Acetaminophen (Tylenol) 650 mg Q4H PRN ORAL fever 11/25/18 17:15 12/25/18 17:14 11/28/18 04:39 Al Hydroxide/Mg Hydroxide (Mylanta II) 30 ml Q6H PRN ORAL dyspepsia 11/25/18 17:15 12/25/18 17:14 Albuterol/ Ipratropium (Albuterol/ Ipratropium) 3 ml Q4H PRN HHN Shortness of Breath 11/25/18 17:15 11/30/18 17:14 Clonidine HCl (Catapres Tab) 0.1 mg Q4H PRN ORAL sbp more than 160 11/25/18 17:15 12/25/18 17:14 Dextrose (Dextrose 50%) 25 ml Q30M PRN IV Hypoglycemia 11/26/18 21:30 12/26/18 21:29 Dextrose (Dextrose 50%) 50 ml Q30M PRN IV Hypoglycemia 11/26/18 21:30 12/26/18 21:29 Insulin Aspart (NovoLOG) BEFORE MEALS AND HS SUBQ 11/25/18 21:00 12/25/18 20:59 11/28/18 07:03 Insulin Aspart (NovoLOG) 16 units NOVOTIAC SUBQ 11/27/18 11:50 12/26/18 06:44 11/27/18 17:40 Insulin Detemir (Levemir) 50 units BEDTIME SUBQ 11/27/18 21:00 12/26/18 21:29 11/27/18 20:55 Insulin Detemir (Levemir) 50 units DAILY SUBQ 11/27/18 09:00 12/26/18 08:59 11/27/18 10:17 Morphine Sulfate (Morphine Sulfate) 2 mg Q4H PRN IVP severe pain 7-10 11/25/18 17:15 12/02/18 17:14 Nitroglycerin (Ntg) 0.4 mg Q5M X 3 DOSES PRN SL Prn Chest Pain 11/25/18 17:15 12/25/18 17:14 Ondansetron HCl (Zofran) 4 mg Q6H PRN IVP Nausea & Vomiting 11/25/18 17:15 12/25/18 17:14 Polyethylene Glycol (Miralax) 17 gm HSPRN PRN ORAL Constipation 11/25/18 17:15 12/25/18 17:14 Sitagliptin Phosphate (Januvia) 50 mg DAILY ORAL 11/26/18 09:00 12/26/18 08:59 11/27/18 08:47 Sodium Chloride 1,000 ml @ 100 mls/hr Q10H IVLG 11/25/18 17:03 12/25/18 17:02 11/27/18 19:36 Temazepam (Restoril) 15 mg HSPRN PRN ORAL Insomnia 11/25/18 17:15 12/02/18 17:14 11/27/18 22:37 Pilo Chapman MD Nov 28, 2018 08:47
[2018-11-28] MEDS: Levemir Flexpen SUBQ SCH (09:00)
[2018-11-28] MEDS: sitaGLIPtin 50mg tab ORAL SCH (09:55)
--- NOTE | 2018-11-28 10:13 | Pre-Procedure Note/Attestation ---
Pre-Procedure Note/Attestation Complete Prior to Procedure Planned Procedure: not applicable Procedure Narrative: egd Indications for Procedure Pre-Operative Diagnosis: gib Attestation I attest that I discussed the nature of the procedure; its benefits; risks and complications; and alternatives (and the risks and benefits of such alternatives ), prior to the procedure, with the patient (or the patient's legal patient relations representative). I attest that, if there was a reasonable possibility of needing a blood transfusion, the patient (or the patient's legal patient relations representative) was given the [facility] standardized written summary, pursuant to the [employer] Blood Safety Act ([place] Health and Safety Code # 1645, as amended). I attest that I re-evaluated the patient just prior to the surgery and that there has been no change in the patient's H&P, except as documented below: Erasmo Gilse MD Nov 28, 2018 10:13
--- NOTE | 2018-11-28 10:14 | General Progress Note ---
Assessment/Plan Problem List: (1) Iron deficiency ICD Codes: E61.1 - Iron deficiency SNOMED: 05959329 (2) CAD (coronary artery disease) ICD Codes: I25.10 - Atherosclerotic heart disease of [place] coronary artery without angina pectoris SNOMED: 54279163 (3) Anemia ICD Codes: D64.9 - Anemia, unspecified SNOMED: 781450326 (4) Epigastric pain ICD Codes: R10.13 - Epigastric pain SNOMED: 27345671 (5) GERD (gastroesophageal reflux disease) ICD Codes: K21.9 - Gastro-esophageal reflux disease without esophagitis SNOMED: 893311348 (6) Positive occult stool blood test ICD Codes: R19.5 - Other fecal abnormalities SNOMED: 07700523 Assessment/Plan plan EGD in AM Subjective ROS Limited/Unobtainable: Yes Allergies: Coded Allergies: No Known Allergies (Unverified , 03/04/14) Objective Last 24 Hour Vital Signs Date Time Temp Pulse Resp B/P (MAP) Pulse Ox O2 Delivery O2 Flow Rate FiO2 11/28/18 04:00 97.5 79 18 144/64 (90) 98 11/28/18 03:47 72 11/28/18 00:00 98.0 79 18 138/105 (116) 98 11/27/18 23:51 81 11/27/18 21:00 Room Air 11/27/18 20:55 77 18 Room Air 21 11/27/18 20:00 97.5 84 20 150/77 (101) 99 11/27/18 19:06 82 11/27/18 16:00 78 11/27/18 16:00 97.6 78 20 149/96 (113) 100 11/27/18 12:00 98.3 80 18 141/90 (107) 99 11/27/18 12:00 80 Intake and Output 11/27/18 11/28/18 19:00 07:00 Intake Total 360 ml 750 ml Balance 360 ml 750 ml Intake Oral 360 ml IV Total 750 ml # Voids 3 2 Laboratory Tests 11/28/18 06:07: White Blood Count 4.5L, Red Blood Count 2.88L, Hemoglobin 10.2L, Hematocrit 31.7L, Mean Corpuscular Volume 110H, Mean Corpuscular Hemoglobin 35.4H, Mean Corpuscular Hemoglobin Concent 32.1, Red Cell Distribution Width 13.7, Platelet Count 358, Mean Platelet Volume 6.2L, Neutrophils (%) (Auto) 53.3, Lymphocytes ( %) (Auto) 35.4, Monocytes (%) (Auto) 8.8, Eosinophils (%) (Auto) 1.8, Basophils (%) (Auto) 0.7, Prothrombin Time 10.0, Prothromb Time International Ratio 0.9, Activated Partial Thromboplast Time 23, Sodium Level 139, Potassium Level 4.3, Chloride Level 107, Carbon Dioxide Level 22, Anion Gap 10, Blood Urea Nitrogen 22H, Creatinine 1.4H, Estimat Glomerular Filtration Rate 46.1, Glucose Level 256H, Calcium Level 9.1 Height (Feet): 5 Height (Inches): 4.00 Weight (Pounds): 200 General Appearance: alert EENT: normal ENT inspection Neck: supple Cardiovascular: normal rate Respiratory/Chest: decreased breath sounds Abdomen: normal bowel sounds, non tender, soft Extremities: non-tender Erasmo Giles MD Nov 28, 2018 10:14
[2018-11-28] MEDS ORDERED: NS 500ML IVPB ONE (10:20)
[2018-11-28] MEDS ORDERED: Propofol 200mg/20ml IV ONE (10:30)
--- NOTE | 2018-11-28 10:38 | Endoscopy Procedure Note ---
Endoscopy Procedure Note General Indication for Procedure: gib Procedures Performed: EGD Operative Findings/Diagnosis: gastric ulcer Specimen: yes Pt Tolerated Procedure Well: Yes Estimated Blood Loss: none Anesthesia Anesthesiologist: charles Anesthesia: MAC Inserted Devices Implant(s) used?: No GI Core Measures 50 yrs or older w/o bx or poly: Not Applicable 10yrs. F/U not recommended: Not Applicable Erasmo Giles MD Nov 28, 2018 10:38
--- NOTE | 2018-11-28 10:52 | Anethesia Preoperative Eval ---
Anesthesia Pre-op PMH/ROS General Date of Evaluation: Nov 28, 2018 Time of Evaluation: 10:20 Anesthesiologist: Ni Montgomery CRNA ASA Score: ASA 3 Mallampati Score Class I : Soft palate, uvula, fauces, pillars visible Class II: Soft palate, uvula, fauces visible Class III: Soft palate, base of uvula visible Class IV: Only hard plate visible Mallampati Classification: Class III Surgeon: Chan Diagnosis: generalized weakness, dyspepsia Surgical Procedure: EGD diagnostic Anesthesia History: none Family History: no anesthesia problems Allergies: Coded Allergies: No Known Allergies (Unverified , 03/04/14) Medications: see eMAR Patient NPO?: Yes NPO Date: Nov 28, 2018 NPO Time: 00:00 Past Medical History Cardiovascular: Reports: HTN, CAD; Denies: [place], valve dz, arrhythmia, other Gastrointestinal/Genitourinary: Reports: GERD, other - acute tubular nephrosis ; Denies: CRI, ESRD Neurologic/Psychiatric: Denies: dementia, CVA, depression/anxiety, TIA, other Endocrine: Reports: DM; Denies: hypothyroidism, steroids, other HEENT: Denies: cataract (L), cataract (R), glaucoma, [place] (L), [place] (R), other Hematology/Immune: Reports: anemia; Denies: DVT, bleeding disorder, other Musculoskeletal/Integumentary: Denies: OA, RA, DJD, DDD, edema, other Other: obesity PMH Narrative: as above PSxH Narrative: see h & p Anesthesia Pre-op Phys. Exam Physician Exam Last Vital Signs Date Time Temp Pulse Resp B/P (MAP) Pulse Ox O2 Delivery O2 Flow Rate FiO2 11/28/18 10:25 97.5 11/28/18 07:40 81 19 Room Air 21 11/28/18 04:00 144/64 (90) 98 Constitutional: NAD Neurologic: CN 2-12 intact Cardiovascular: RRR Respiratory: CTA Gastrointestinal: S/NT/ND, other - obese Airway Exam Mallampati Score: Class III MO: full Neck: short thick neck TMD: > 3 FB ROM: full Teeth: intact Dentures: upper; no lower Anesthesia Pre-op A/P Labs Hematology Test 11/28/18 06:07 White Blood Count 4.5 K/UL (4.8-10.8) L Red Blood Count 2.88 M/UL (4.20-5.40) L Hemoglobin 10.2 G/DL (12.0-16.0) L Hematocrit 31.7 % (37.0-47.0) L Mean Corpuscular Volume 110 FL (80-99) H Mean Corpuscular Hemoglobin 35.4 PG (27.0-31.0) H Mean Corpuscular Hemoglobin Concent 32.1 G/DL (32.0-36.0) Red Cell Distribution Width 13.7 % (11.6-14.8) Platelet Count 358 K/UL (150-450) Mean Platelet Volume 6.2 FL (6.5-10.1) L Neutrophils (%) (Auto) 53.3 % (45.0-75.0) Lymphocytes (%) (Auto) 35.4 % (20.0-45.0) Monocytes (%) (Auto) 8.8 % (1.0-10.0) Eosinophils (%) (Auto) 1.8 % (0.0-3.0) Basophils (%) (Auto) 0.7 % (0.0-2.0) Coagulation Test 11/28/18 06:07 Prothrombin Time 10.0 SEC (9.30-11.50) Prothromb Time International Ratio 0.9 (0.9-1.1) Activated Partial Thromboplast Time 23 SEC (23-33) Chemistry Test 11/28/18 06:07 Sodium Level 139 MMOL/L (136-145) Potassium Level 4.3 MMOL/L (3.5-5.1) Chloride Level 107 MMOL/L (98-107) Carbon Dioxide Level 22 MMOL/L (21-32) Anion Gap 10 mmol/L (5-15) Blood Urea Nitrogen 22 mg/dL (7-18) H Creatinine 1.4 MG/DL (0.55-1.30) H Estimat Glomerular Filtration Rate 46.1 mL/min (>60) Glucose Level 256 MG/DL (74-106) H Calcium Level 9.1 MG/DL (8.5-10.1) Accucheck Glucose 256 Studies Pre-op Studies: EKG - NSR, cannot r/o anterior infarct Risk Assessment & Plan Assessment: ASA 3, ok to proceed Plan: MAC Pre-Antibiotics Given Within 1 Hr of Incision: Ni Gomes CRNA Nov 28, 2018 10:52
--- NOTE | 2018-11-28 10:53 | Immediate Post-Op Evaluation ---
Immediate Post-Op Evalulation Immediate Post-Op Evalulation Procedure: EGD diagnostic Date of Evaluation: Nov 28, 2018 Time of Evaluation: 10:41 IV Fluids: 0.9 NS 20 ml Blood Pressure Systolic: 153 Blood Pressure Diastolic: 85 Pulse Rate: 76 Respiratory Rate: 22 O2 Sat by Pulse Oximetry: 99 Temperature (Fahrenheit): 97.0 Pain Score (1-10): 0 Nausea: No Vomiting: No Complications none Patient Status: reacts, patent Hydration Status: adequate Given Within 1 Hr of Incision: Ni Gomes CRNA Nov 28, 2018 10:53
[2018-11-28] MEDS ORDERED: NovoLOG Insulin Flexpen SUBQ SCH (11:50)
--- NOTE | 2018-11-28 12:14 | Pulmonology Progress Note ---
Assessment/Plan Problems: (1) Uncontrolled diabetes mellitus (2) ATN (acute tubular necrosis) (3) Hx of CABG (4) CAD (coronary artery disease) (5) S/p nephrectomy Assessment/Plan EGD done, showing gastric ulcer, will need colonoscopy as well. ivf fluids check electrolytes OB positive, ask GI to see increase Levemir to 50 units bid increase Novolog to 16 units ac tid Subjective ROS Limited/Unobtainable: No Constitutional: Reports: no symptoms HEENT: Repors: no symptoms Respiratory: Reports: no symptoms Allergies: Coded Allergies: No Known Allergies (Unverified , 03/04/14) Objective Last 24 Hour Vital Signs Date Time Temp Pulse Resp B/P (MAP) Pulse Ox O2 Delivery O2 Flow Rate FiO2 11/28/18 11:10 97.8 74 15 131/74 100 Nasal Cannula 3 11/28/18 11:00 72 15 162/83 100 Nasal Cannula 3 11/28/18 10:53 76 22 99 11/28/18 10:50 85 15 156/79 100 Nasal Cannula 3 11/28/18 10:46 76 16 168/74 100 Nasal Cannula 3 11/28/18 10:41 97.0 76 22 153/85 99 Nasal Cannula 3 11/28/18 10:25 97.5 11/28/18 09:00 Room Air 11/28/18 08:00 97.1 68 18 142/82 (102) 100 11/28/18 07:40 81 19 Room Air 21 11/28/18 04:00 97.5 79 18 144/64 (90) 98 11/28/18 03:47 72 11/28/18 00:00 98.0 79 18 138/105 (116) 98 11/27/18 23:51 81 11/27/18 21:00 Room Air 11/27/18 20:55 77 18 Room Air 21 11/27/18 20:00 97.5 84 20 150/77 (101) 99 11/27/18 19:06 82 11/27/18 16:00 78 11/27/18 16:00 97.6 78 20 149/96 (113) 100 Intake and Output 11/27/18 11/28/18 19:00 07:00 Intake Total 360 ml 750 ml Balance 360 ml 750 ml Intake Oral 360 ml IV Total 750 ml # Voids 3 2 General Appearance: WD/WN HEENT: normocephalic, atraumatic Respiratory/Chest: chest wall non-tender, lungs clear Breasts: no masses Cardiovascular: normal peripheral pulses, regular rhythm Abdomen: normal bowel sounds, soft, non tender Neurologic/Psychiatric: embedded software programmer II-XII grossly normal Microbiology Date/Time Source Procedure Growth Status 11/25/18 15:30 Urine,Clean Catch Urine Culture - Final Mixed Gram Positive Organism Complete Laboratory Tests 11/28/18 06:07: White Blood Count 4.5L, Red Blood Count 2.88L, Hemoglobin 10.2L, Hematocrit 31.7L, Mean Corpuscular Volume 110H, Mean Corpuscular Hemoglobin 35.4H, Mean Corpuscular Hemoglobin Concent 32.1, Red Cell Distribution Width 13.7, Platelet Count 358, Mean Platelet Volume 6.2L, Neutrophils (%) (Auto) 53.3, Lymphocytes ( %) (Auto) 35.4, Monocytes (%) (Auto) 8.8, Eosinophils (%) (Auto) 1.8, Basophils (%) (Auto) 0.7, Prothrombin Time 10.0, Prothromb Time International Ratio 0.9, Activated Partial Thromboplast Time 23, Sodium Level 139, Potassium Level 4.3, Chloride Level 107, Carbon Dioxide Level 22, Anion Gap 10, Blood Urea Nitrogen 22H, Creatinine 1.4H, Estimat Glomerular Filtration Rate 46.1, Glucose Level 256H, Calcium Level 9.1 Current Medications Medications (Trade) Dose Ordered Sig/Kathrine Route PRN Reason Start Time Stop Time Status Last Admin Dose Admin Acetaminophen (Tylenol) 650 mg Q4H PRN ORAL fever 11/25/18 17:15 12/25/18 17:14 11/28/18 04:39 Al Hydroxide/Mg Hydroxide (Mylanta II) 30 ml Q6H PRN ORAL dyspepsia 11/25/18 17:15 12/25/18 17:14 Albuterol/ Ipratropium (Albuterol/ Ipratropium) 3 ml Q4H PRN HHN Shortness of Breath 11/25/18 17:15 11/30/18 17:14 Clonidine HCl (Catapres Tab) 0.1 mg Q4H PRN ORAL sbp more than 160 11/25/18 17:15 12/25/18 17:14 Dextrose (Dextrose 50%) 25 ml Q30M PRN IV Hypoglycemia 11/26/18 21:30 12/26/18 21:29 Dextrose (Dextrose 50%) 50 ml Q30M PRN IV Hypoglycemia 11/26/18 21:30 12/26/18 21:29 Insulin Aspart (NovoLOG) BEFORE MEALS AND HS SUBQ 11/25/18 21:00 12/25/18 20:59 11/28/18 11:52 Insulin Aspart (NovoLOG) 20 units NOVOTIAC SUBQ 11/28/18 11:50 12/26/18 06:44 11/28/18 11:54 Insulin Detemir (Levemir) 50 units BEDTIME SUBQ 11/27/18 21:00 12/26/18 21:29 11/27/18 20:55 Insulin Detemir (Levemir) 50 units DAILY SUBQ 11/27/18 09:00 12/26/18 08:59 11/27/18 10:17 Morphine Sulfate (Morphine Sulfate) 2 mg Q4H PRN IVP severe pain 7-10 11/25/18 17:15 12/02/18 17:14 11/28/18 09:55 Nitroglycerin (Ntg) 0.4 mg Q5M X 3 DOSES PRN SL Prn Chest Pain 11/25/18 17:15 12/25/18 17:14 Ondansetron HCl (Zofran) 4 mg Q6H PRN IVP Nausea & Vomiting 11/25/18 17:15 12/25/18 17:14 Polyethylene Glycol (Miralax) 17 gm HSPRN PRN ORAL Constipation 11/25/18 17:15 12/25/18 17:14 Sitagliptin Phosphate (Januvia) 50 mg DAILY ORAL 11/26/18 09:00 12/26/18 08:59 11/28/18 09:55 Sodium Chloride 1,000 ml @ 100 mls/hr Q10H IVLG 11/25/18 17:03 12/25/18 17:02 11/27/18 19:36 Temazepam (Restoril) 15 mg HSPRN PRN ORAL Insomnia 11/25/18 17:15 12/02/18 17:14 11/27/18 22:37 Ari Irby MD Nov 28, 2018 12:14
[2018-11-28] MEDS ORDERED: PROTONIX20 MG ORAL (12:18)
[2018-11-28] MEDS ORDERED: JANUVIA50 MG ORAL (12:18)
[2018-11-28] MEDS ORDERED: NOVOLOG100 UNITS1 SUBQ (12:18)
[2018-11-28] MEDS ORDERED: LEVEMIR FL100 UNIT/1 SUBQ ×2 (12:18)
[2018-11-28] MEDS ORDERED: CARAFATE1 GM/10 M1 ORAL (12:19)
--- NOTE | 2018-11-28 14:09 | 48 Hour Post Anesthesia Eval ---
Post Anesthesia Evaluation Procedure: EGD diagnostic Date of Evaluation: Nov 28, 2018 Time of Evaluation: 14:08 Blood Pressure Systolic: 131 0: 74 Pulse Rate: 74 Respiratory Rate: 15 Temperature (Fahrenheit): 97.8 O2 Sat by Pulse Oximetry: 100 Nausea: No Vomiting: No Pain Intensity: 0 Hydration Status: adequate Cardiopulmonary Status: stable Mental Status/LOC: patient returned to baseline Follow-up Care/Observations: per hospitlaist Post-Anesthesia Complications: none Follow-up care needed: N/A Ni Montgomery CRNA Nov 28, 2018 14:09
--- NOTE | 2018-11-28 15:00 | NUR ---
NURSE NOTES: After receiving bedside report from loop tender nurse Darlin VIGIL, pt requested to speak with me, and informed me how unhappy she has been with the care she has received from the previous shift. Pt stated "I was stuck with needle four times!" Pt continued to say "I am not happy with the service I have received during the loop tender! My bed has not been changed in three days! I was given attitude by a lady from previous shift, but she refused to give me her name! I want better customer service and want to speak with the charge nurse!" I attentively listened to the pt, then apologized for her negative experience, and offered to assist her and improve her experience during my shift. I then informed Maddy, my day-shift charge nurse to speak with the pt. Pt verbalized feeling more satisfied after speaking with me and Maddy, my charge nurse. Pt also spoke with Ronnie, the [id number] at bedside. Pt's bed was changed immediately. Hourly rounding was conducted. Pt was offered assistance and reassurance throughout my shift. After receiving discharge order from Dr Irby, pt was given discharge instructions, which was explained to pt. I accompanied the pt in the elevator and assisted her out of the facility and into her sister's private vehicle upon discharge. Pt gave me a hug and thanked me for my assistance.
--- NOTE | 2018-11-28 15:00 | NUR ---
NURSE NOTES: Pt was discharged as ordered. Tele monitor removed and returned. IV access removed. Discharge instructions given to pt, and explain in detail, pt verbalized understanding. Rx written by Dr Irby was handed to pt, with copies placed in paper chart. Pt's belonging's list checked and signed with the pt. Pt was assisted with discharge, accompanied in the elevator, and into her sister's private vehicle. Pt left facility in stable condition.
--- NOTE | 2018-11-28 16:30 | Procedure Note ---
DATE OF PROCEDURE: 11/28/2018 SURGEON: Erasmo Giles M.D. PROCEDURE: Upper endoscopy with biopsy. ANESTHESIA: Per Ni MA. INSTRUMENT: Olympus adult flexible upper endoscope. INDICATION: 1. Anemia. 2. Stool OB positive. REASON FOR PROCEDURE: The procedure, risks, benefits, and possible consequences, including hemorrhage, aspiration, perforation and infection, and alternative treatments, were explained to the patient/legal guardian by Dr. Erasmo Giles and the patient/legal guardian understood and accepted these risks. DESCRIPTION OF PROCEDURE: After informed consent was obtained and the patient was adequately sedated, Olympus upper endoscope was advanced from the mouth into the second portion of the duodenum and retroflexion was performed in the stomach. The patient had some shallow ulceration in the antrum of the stomach with some mucosal changes suggestive of erythema in that area. Biopsy from antrum was obtained. The rest of the examination grossly within normal limits. The patient tolerated procedure very well without any complication. SUMMARY OF FINDINGS: Shallow gastric ulceration in the antrum with some inflammatory changes around it, status post biopsy, otherwise normal upper endoscopic examination. RECOMMENDATIONS: 1. Follow up biopsy results and treat accordingly. 2. The patient will need an outpatient followup for outpatient colonoscopy. I want to thank, Dr. Irby, for this kind referral. Erasmo Giles M.D. DR: Jennifer JOB#: [id number] CC: Ari Irby M.D.; Fax#: [phone]
--- NOTE | 2018-12-02 10:09 | Discharge Summary ---
Discharge Summary Discharge Summary _ DATE OF ADMISSION: 11/25/2018 DATE OF DISCHARGE: 11/28/2018 DISCHARGED BY: Dr. Irby REASON FOR ADMISSION: 63 years old female with past medical history of diabetes mellitus, hypertension , coronary artery disease, status post CABG, status post left nephrectomy, leukemia , brought to emergency department with chief complaint of generalized weakness, lightheadedness and elevated blood sugar. Upon evaluation blood pressure was elevated 168/82. Laboratory workup revealed no leukocytosis, mild anemia with hemoglobin 11.3 , hematocrit 35.1. Stable electrolytes ,BUN 37, creatinine 1.7. Glucose 459. Stable potassium, CO2, and anion gap. Troponin negative. Pro BNP 27. EKG revealed sinus rhythm, no acute ischemic changes. TSH within normal limits. Lipase 410. CT of the abdomen and pelvis revealed no evidence of acute abnormality. Colonic diverticulosis was noted without evidence of diverticulitis. Patient was admitted to telemetry floor for further management. CONSULTANTS: GI specialist Dr. Giles nutritionists Dr. Chapman [facility]: Patient admitted and started on IV fluids. Blood sugar was managed as per nutritionists recommendations with long-acting Levemir, short acting NovoLog pre-meal and sliding scale of insulin was continued as needed. Baseball Scout recommended not to resume Victoza due to elevated lipase. Hemoglobin A1c 11.5. Patient will need further optimization of anti- glycemic regimen as outpatient with close follow up with her primary care provider. Renal parameters and electrolytes were closely monitored. Electrolytes corrected as needed. Nephrotoxins were avoided. Creatinine from 1.7 down to 1.4. BUN from 37 down to 22. Lipid panel was stable. Antiplatelet therapy with Plavix was continued. Blood pressure was managed with current regimen and remained stable. DVT prophylaxis provided. Supplemental oxygen provided as needed to keep pulse oximetry above 92%. Pulmonary toilet provided. Pain management was addressed as needed. Supportive care provided. Bowel regimen instituted. Patient noted to be anemic. Anemia workup revealed evidence of anemia of iron deficiency. Elevated CEA noted along with stool positive for occult blood. GI specialist closely followed. Patient subsequently undergone upper endoscopy with findings of shallow gastric ulceration in the antrum with some inflammatory changes status post biopsy. Otherwise normal upper endoscopy examination. At the time of this dictation biopsy results still pending. Patient started on PPI. Patient was given Venofer . Hemoglobin and hematocrit remained at the baseline Prior to discharge hemoglobin 10.2, hematocrit 31.5. Patient was recommended to have outpatient colonoscopy. Reinforced close follow-up with a primary care provider and compliance with medication regimen. Patient stabilized and was ready for discharge home. FINAL DIAGNOSES: Diabetes mellitus out of control with hyperglycemia Diabetic nephropathy Acute tubular necrosis Coronary artery disease with history of CABG Status post left nephrectomy Iron deficiency anemia Positive stool for occult blood Status post EGD Gastric ulcer DISCHARGE MEDICATIONS: See Medication Reconciliation list. DISCHARGE INSTRUCTIONS: Patient was discharged home . Follow up with primary care provider in one week. Outpatient colonoscopy recommended. I have been assigned to dictate discharge summary for this account. I was not involved in the patient's management. Ale Gaming NP Dec 02, 2018 10:08
== END 2018-11-28 15:00 | disposition home or self-care (01) | DRG 637 ==
LOC: EDBD 13:58 → EMR 14:05 → EDBEDREQ 18:45 → 2E 19:16
PROC: 0DB78ZX Excision of Stomach, Pylorus, Via Natural or Artificial Opening Endoscopic, Diagnostic (ICD-10-PCS; principal; 2018-11-28 10:33)
DX: E11.65 Type 2 diabetes mellitus with hyperglycemia (principal); K85.90 Acute pancreatitis without necrosis or infection, unspecified; N17.0 Acute kidney failure with tubular necrosis; N17.9 Acute kidney failure, unspecified; I25.10 Atherosclerotic heart disease of native coronary artery without angina pectoris; Z95.1 Presence of aortocoronary bypass graft; Z90.5 Acquired absence of kidney; Z79.82 Long term (current) use of aspirin; Z79.4 Long term (current) use of insulin; E11.21 Type 2 diabetes mellitus with diabetic nephropathy; D50.9 Iron deficiency anemia, unspecified; K25.9 Gastric ulcer, unspecified as acute or chronic, without hemorrhage or perforation; E78.5 Hyperlipidemia, unspecified; K21.9 Gastro-esophageal reflux disease without esophagitis
CPT/HCPCS: 36415; 74176; 80048; 80053; 80061; 81001; 82270; 82378; 82607; 82746; 82962; 83036; 83540; 83550; 83615; 83690; 83880; 84443; 84484; 85007; 85025; 85044; 85060; 85610; 85651; 85730; 86850; 86900; 86901; 87086; 93005; 94003; 94150; 94664; 99285; J1815; S5561